=== PATIENT | female | born 1995 | race Caucasian/White ===

== ENCOUNTER 2018-02-22 11:44 | Observation (INO) ==
[2018-02-22] MEDS ORDERED: Naloxone 0.4 MG/ML INJ IVP PRN (13:42)
[2018-02-22] MEDS ORDERED: *HR* Dextrose 50 % in Water (Syg) 50 ML SYRINGE IVP PRN (13:44)
[2018-02-22] MEDS ORDERED: Dextrose Gel 15 GM/37.5 ML TUBE PO PRN ×2 (13:44)
[2018-02-22] MEDS ORDERED: D5% in Water 1,000 ML IVC PRN (13:44)
--- NOTE | 2018-02-22 13:48 | Internal Med History&Physical ---
Date of Encounter: 02/22/18 Time of Encounter: 13:48 Internal Medicine - H&P: HPI Chief complaint: nasue, vomiting and diarrhea Admitted From: Hospital to Hospital Transfer Plans for Post Hospital Care: Home History of present illness: Ms. Posadas is a 22 year old female with DM1 diagnosed at age of 4 presented to [facility] ED with complaint of nausea, vomiting adn diarrhea. her symptoms started at 11 pm on 02/21 with nasue and quickle she developed vomiting. she describes 7 episodes of bile stained, non-bloody vomiting along with 5 episodes of watery non-blood diarrhea and went to [facility] ED for further evaluation as her symptoms did not resolved. she was unable to sleep at night as her symptoms kept her awake. she denies abdominal pain associated with her nausea, vomiting and diarrhea, reports that she is not ( was checked at [facility]). she decided to go to the ED because she has had similar symptoms in the past and had to be admitted to the ICU for DKA. last DKA occurred in April of 2017 where she was intubated for DKA. she has not taken her long acting insulin dosage in the AM. she is feeling much better as she was hydrated at [facility]. she reports that she is hungry and is inquiring about eating. all her symptoms have resolved. has not vomited or had diarrhea since she was evaluated at [facility] earlier on admission morning. she denies fever, chill,s, chest pain, palpitations, LOC, Syncope, PND, ort hopnea, leg swelling, recent Abx use, illicit drug use, jaundice. does report that her daughter is sick with croup but denies other sick contacts. Past Med Surg Social Fam HX - Past Medical History Medical history: diabetes Additional medical history: neuropathy Psychiatric history: no psych history - Past Surgical History Surgical History: other (Tonsillectomy) Additional surgical history: t&a at age 7 - Social History Smoking Status: Former smoker Smokeless Tobacco Status: No Alcohol use: none Drug use: none - Family History Mother Living Status: Still Living Hx Family Cardiac Disorders: Yes Internal Medicine - H&P: Meds Gabapentin [Neurontin] 300 mg PO HS 08/05/17 [History] Insulin Glargine,Hum.rec.anlog [Trevonaglhoward Santacruz U-100] 36 unit SQ BID 02/22/18 [History] Insulin LISPRO [Admelog Solostar] 0 unit SQ ACHS 02/22/18 [History] Allergy/AdvReac Type Severity Reaction Status Date / Time ondansetron Allergy Hives Verified 02/22/18 09:25 [From Zofran (as hydrochloride)] All Systems PM: A 10-system review of systems was performed and is negative for pertinent findings except as documented above in the HPI. - Constitutional Vitals: VSS at bedside - pending nursing staff to document in the chart Exam: General: Patient is alert, oriented, no acute distress, thin Head: atraumatic, normocephalic, Eye: normal appearance, PERRL, no scleral icterus, no conjunctival injection ENT: mucous membranes moist, normal external ear exam Neck: normal inspection, trachea midline, full ROM, no carotid bruits Chest: normal inspection, symmetric chest rise Respiratory: Good respiratory effort. Bilateral breath sounds are clear without wheezing, crackles, or rhonchi. Cardiovascular: Regular rate and rhythm. s1 and s2 No clicks, rubs, gallops, or murmors. Abdomen: Bowel sounds present normoactive x-4 quadrants. Abdomen is soft, non distended. no Epigastric tenderness. No guarding or rebound. No organomegaly noted, musculoskeletal: Spontaneously moving all extremities. no edema, no calf tenderness Skin: warm, dry, intact. Neuro: Alert and oriented x4. Sensation light touch intact. Cranial nerves 2- 12 is intact. Not aphasic, gait is steady, rapid hand movements intact, [id number] intact, Psych: Patient's affect is normal - Assessment and plan (1) Gastroenteritis Current Visit: No Status: Acute Assessment and plan: most likely viral stool studies ordered will follow will hold off of Abx for now as she is afebrile and had no WBC count at [facility] currently hungry and is asking for diet N/V/D has resolved since presentation at [facility] promethazine 12.5 mg Q8H PRN for N/V continue IV hydration - watch for overload if she developes fever, leukocytosis or meets SIRS criteria- consider starting ABx (2) Hyperglycemia due to type 1 diabetes mellitus Current Visit: Yes Status: Acute Assessment and plan: patient had N/v/D did not take her morning long acting or sliding insulin before going to [facility] ED for evaluation was found to have blood glucose of 290, no Anion gap, PH WNL. will continue home dose long acting along with sliding scale strict glucose control currently hungry and requesting diet continue IV hydration A1c in AM (3) Ketosis Current Visit: Yes Status: Acute Assessment and plan: most likely secondary to starvation as her blood glucose was 290 on presentation to [facility] and she reports she has not been able to eat or drink anything since 11 pm at night. continue IV hydration labs from [facility] reviewed PH 7.34 mildly elevated BHB 1.32 (4) DVT prophylaxis Current Visit: Yes Status: Acute Assessment and plan: heparin sc - Time Spent With Patient Total time spent is greater than 50% in coordination of care (as documented) at patient's floor/unit and/or counseling patient:
[2018-02-22] MEDS: 0.9 % Sodium Chloride 1,000 ML IVC SCH (14:44)
[2018-02-22] MEDS: Insulin LISPRO 300 UNITS/3 ML VIAL SQ SCH ×3 (14:45→21:39)
[2018-02-22] MEDS: *HR* Heparin 5,000 UNIT/ML VIAL SQ SCH ×2 (15:28→21:14)
[2018-02-22] MEDS: *HR* Promethazine 25 MG/ML VIAL IVP PRN (17:14)
[2018-02-22 18:35] LABS: Enteropathogenic E.coli(EPEC) DETECTED (Not detect)
[2018-02-22 18:39] LABS: Adenovirus F 40/41 PCR Not detected (Not detect); Astrovirus PCR Not detected (Not detect); C.difficile Toxin A/B by PCR Not detected (Not detect); Campylobacter by PCR Not detected (Not detect); Cryptosporidium by PCR DETECTED (Not detect); Cyclospora cayetanensis PCR Not detected (Not detect); E. coli O157 by PCR Not detected (Not detect); Entamoeba histolytica PCR Not detected (Not detect); Enteroaggregative E.coli(EAEC) Not detected (Not detect); Enterotoxigenic E.coli (ETEC) Not detected (Not detect); Giardia lamblia PCR Not detected (Not detect); Norovirus GI/GII PCR Not detected (Not detect); Plesiomonas shigelloides PCR Not detected (Not detect); Rotavirus A PCR Not detected (Not detect); Salmonella PCR Not detected (Not detect); Sapovirus PCR Not detected (Not detect); Shig/EnteroinvasiveE coli EIEC DETECTED (Not detect); Shigalike tox-prod E coli STEC Not detected (Not detect); Vibrio PCR Not detected (Not detect); Vibrio cholerae PCR Not detected (Not detect); Yersinia enterocolitica PCR Not detected (Not detect)
[2018-02-22 19:11] LABS: Basophils % 0.2 %; Eosinophils % 0.6 %; Hematocrit 39.4 % (35.3-44.9); Hemoglobin 13.2 g/dL (11.5-15.4); Immature Granulocytes % 0.4 % (0-4); Lymphocytes # 0.6 K/mcL (0.6-4.6); Lymphocytes % 12.9 %; Mean Corpuscular HGB Conc 33.5 g/dL (31.6-35.5); Mean Corpuscular Hemoglobin 28.4 pg (28.0-33.3); Mean Corpuscular Volume 84.9 fL (83.0-100.0); Mean Platelet Volume 10.9 fL (9.4-12.4); Monocytes # 0.3 K/mcL (0.0-1.3); Monocytes % 6.3 %; Neutrophils # 3.9 K/mcL (1.6-8.9); Platelet Count 154 K/mcL (140-400); Red Blood Count 4.64 M/mcL (3.82-4.97); Red Cell Distribution Width 12.1 % (11.5-14.5); Segmented Neutrophils % 79.6 %
[2018-02-22] MEDS: cefTRIAXone 2,000 MG in Water for inj. (sterile) 20 ML 20 ML IVP SCH (19:15)
[2018-02-22 19:31] LABS: Alanine Aminotransferase 10 Units/L (7-52); Albumin 3.8 g/dL (3.5-5.7); Albumin/Globulin Ratio 1.5 (1.1-2.2); Alkaline Phosphatase 64 Units/L (34-104); Aspartate Amino Transferase 12 Units/L (13-39); BUN/Creatinine Ratio 27 (6-26); Bilirubin,Total 0.5 mg/dL (0.3-1.0); Blood Urea Nitrogen 12 mg/dL (6-20); Calcium 8.4 mg/dL (8.6-10.3); Carbon Dioxide 18 mEq/L (23-29); Chloride 108 mEq/L (98-107); Globulin 2.5 g/dL (2.4-3.5); Glucose 115 mg/dL (70-105); Osmolality,Calculated 287 (280-300); Potassium 3.3 mEq/L (3.5-5.1); Sodium 138 mEq/L (136-145); Total Protein 6.3 g/dL (6.4-8.9); eGFR For Non-African Americans > 60 (> 60)
[2018-02-22 20:16] LABS: Bilirubin,Urine Negative (Negative); Blood,Urine Negative (Negative); Clarity,Urine Clear (Clear); Color,Urine Yellow (Yellow); Glucose,Urine (UA) 250 mg/dL (Normal); Ketones,Urine >=160 mg/dL (Negative); Leukocyte Esterase,Urine Negative (Negative); Nitrite,Urine Negative (Negative); PH,Urine 5.5 pH Units (5.0-8.0); Protein,Urine 30 mg/dL (Neg-Trace); Specific Gravity,Urine 1.027 (1.010-1.025); Urobilinogen,Urine Normal (Normal)
[2018-02-22 20:18] LABS: Bacteria,Urine Few per hpf (None-Few); Hyaline Casts,Urine None Seen per lpf (None-Few); RBC,Urine 0-3 per hpf (0-3); Squamous Epithelial Cell,Urine Many per lpf (None-Few)
[2018-02-22 20:26] LABS: Amphetamine Screen,Urine Positive ng/mL (Cutoff=1000); Barbiturate Screen,Urine Negative ng/mL (Cutoff=200); Benzodiazepines Screen,Urine Negative ng/mL (Cutoff=200); Cannabinoid Screen,Urine Negative ng/mL (Cutoff = 50); Cocaine Screen,Urine Negative ng/mL (Cutoff= 300); Opiate Screen,Urine Negative ng/mL (Cutoff=300); Phencyclidine Screen,Urine Negative ng/mL (Cutoff=25)
[2018-02-22] MEDS: Insulin DETEMIR 100 UNIT/ML X5UNITS SQ SCH (21:15)
[2018-02-22] MEDS: Gabapentin 300 MG CAPSULE PO SCH (21:15)
[2018-02-23] MEDS: traMADol 50 MG TABLET PO PRN ×2 (00:50→18:20)
[2018-02-23] MEDS: *HR* Promethazine 25 MG/ML VIAL IVP PRN ×3 (00:50→18:08)
[2018-02-23] MEDS: 0.9 % Sodium Chloride 1,000 ML IVC SCH (00:51)
[2018-02-23 04:42] LABS: Basophils % 0.2 %; Eosinophils % 0.6 %; Hemoglobin 12.2 g/dL (11.5-15.4); Immature Granulocytes % 0.4 % (0-4); Mean Corpuscular HGB Conc 33.9 g/dL (31.6-35.5); Mean Corpuscular Hemoglobin 28.8 pg (28.0-33.3); Mean Corpuscular Volume 85.1 fL (83.0-100.0); Mean Platelet Volume 11.4 fL (9.4-12.4); Monocytes # 0.3 K/mcL (0.0-1.3); Monocytes % 6.5 %; Neutrophils # 3.4 K/mcL (1.6-8.9); Platelet Count 153 K/mcL (140-400); Red Blood Count 4.23 M/mcL (3.82-4.97); Red Cell Distribution Width 12.1 % (11.5-14.5); Segmented Neutrophils % 71.3 %
[2018-02-23 04:59] LABS: BUN/Creatinine Ratio 21 (6-26); Blood Urea Nitrogen 8 mg/dL (6-20); Calcium 8.3 mg/dL (8.6-10.3); Carbon Dioxide 17 mEq/L (23-29); Chloride 113 mEq/L (98-107); Cholesterol 117 mg/dL (< 200); Glucose 84 mg/dL (70-105); HDL Cholesterol 29 mg/dL (40-59); LDL Cholesterol,Calculated 73 mg/dL (0-99); Magnesium 1.8 mg/dL (1.6-2.6); Osmolality,Calculated 286 (280-300); Potassium 3.4 mEq/L (3.5-5.1); Sodium 139 mEq/L (136-145); Triglycerides 77 mg/dL (< 150); eGFR For Non-African Americans > 60 (> 60)
[2018-02-23] MEDS: *HR* Heparin 5,000 UNIT/ML VIAL SQ SCH ×3 (05:42→21:36)
[2018-02-23] MEDS: Insulin LISPRO 300 UNITS/3 ML VIAL SQ SCH ×4 (07:36→21:37)
[2018-02-23] MEDS: Insulin DETEMIR 100 UNIT/ML X5UNITS SQ SCH ×2 (09:31→21:37)
[2018-02-23] MEDS ORDERED: 0.9 % Sodium Chloride 1,000 ML IVC SCH (14:00)
--- NOTE | 2018-02-23 16:56 | Internal Med Progress Note ---
Hospitalist Progress Note - Encounter Date of Encounter: 02/23/18 Time of Encounter: 16:53 - Subjective Interval History: Patient was seen and examined earlier this morning she continues to experience diarrhea overnight she had proximal and 5 stools however this morning states she has not had any bowel movement. She is tolerating. At this time no nausea or vomiting - Exam Vitals: Temp Pulse Resp BP Pulse Ox 97.4 F L 81 18 111/71 98 02/23/18 15:51 02/23/18 15:51 02/23/18 15:51 02/23/18 15:51 02/23/18 15:51 Exam: General: Patient is alert, oriented, no acute distress, thin Head: atraumatic, normocephalic, Eye: normal appearance, PERRL, no scleral icterus, no conjunctival injection ENT: mucous membranes moist, normal external ear exam Neck: normal inspection, trachea midline, full ROM, no carotid bruits Chest: normal inspection, symmetric chest rise Respiratory: Good respiratory effort. Bilateral breath sounds are clear without wheezing, crackles, or rhonchi. Cardiovascular: Regular rate and rhythm. s1 and s2 No clicks, rubs, gallops, or murmors. Abdomen: Bowel sounds present normoactive x-4 quadrants. Abdomen is soft, nondistended. no Epigastric tenderness. No guarding or rebound. No organomegaly noted, musculoskeletal: Spontaneously moving all extremities. no edema, no calf tenderness Skin: warm, dry, intact. Neuro: Alert and oriented x4. Sensation light touch intact. Cranial nerves 2- 12 is intact. Not aphasic, gait is steady, rapid hand movements intact, [id number] intact, Psych: Patient's affect is normal - Assessment and Plan (1) Gastroenteritis Current Visit: No Status: Acute Assessment and Plan: most likely viral stool studies ordered will follow will hold off of Abx for now as she is afebrile and had no WBC count at [facility] currently hungry and is asking for diet N/V/D has resolved since presentation at [facility] promethazine 12.5 mg Q8H PRN for N/V continue IV hydration - watch for overload if she developes fever, leukocytosis or meets SIRS criteria- consider starting ABx 02/23 GI panel was positive for Shigella, E coli and Cryptosporodium We will continue with IV Rocephin I did discuss with the patient concerns of HIV exposure-patient states that she had unprotected sex with HIV-positive male approximately one year ago. Patient states she has never been tested for HIV in the past. We will obtain HIV test after patient gives consent We will continue with IV hydration Continue with IV Phenergan for nausea (2) Hyperglycemia due to type 1 diabetes mellitus Current Visit: Yes Status: Acute Assessment and Plan: patient had N/v/D did not take her morning long acting or sliding insulin before going to [facility] ED for evaluation was found to have blood glucose of 290, no Anion gap, PH WNL. will continue home dose long acting along with sliding scale strict glucose control currently hungry and requesting diet continue IV hydration A1c in AM 02/23 Patient has been tolerating oral intake however she did have blood glucose of 80-93 May decrease basal insulin due to unpredictable oral intake Continue to monitor glucose closely Continue with IV hydration We will check A1c (3) Ketosis Current Visit: Yes Status: Acute Assessment and Plan: most likely secondary to starvation as her blood glucose was 290 on presentation to [facility] and she reports she has not been able to eat or drink anything since 11 pm at night. continue IV hydration labs from [facility] reviewed PH 7.34 mildly elevated BHB 1.32 (4) DVT prophylaxis Current Visit: Yes Status: Acute Assessment and Plan: heparin sc - Time Spent with Patient Total time spent is greater than 50% in coordination of care (as documented) at patient's floor/unit and/or counseling patient: Internal Medicine: Result - Labs CBC & Chem 7: 02/23/18 03:42 02/23/18 03:42 Labs: Short CBC 02/22/18 02/23/18 Range/Units 19:01 03:42 WBC 5.0 4.8 (4.3-11.1) K/mcL Hgb 13.2 D 12.2 (11.5-15.4) g/dL Hct 39.4 36.0 (35.3-44.9) % Plt Count 154 153 (140-400) K/mcL Neutrophils # 3.9 3.4 (1.6-8.9) K/mcL BMP 02/22/18 02/23/18 19:01 03:42 Sodium 138 139 Potassium 3.3 L 3.4 L Chloride 108 H 113 H Carbon Dioxide 18 L 17 L BUN 12 8 Creatinine 0.44 L 0.38 L Glucose 115 H 84 Calcium 8.4 L 8.3 L Liver Function 02/22/18 Range/Units 19:01 Total Bilirubin 0.5 (0.3-1.0) mg/dL AST 12 L (13-39) Units/L ALT 10 (7-52) Units/L Alkaline Phosphatase 64 (34-104) Units/L Albumin 3.8 (3.5-5.7) g/dL Urine 02/22/18 Range/Units 20:09 Urine Color Yellow (Yellow) Urine Clarity Clear (Clear) Urine pH 5.5 (5.0-8.0) pH Units Ur Specific [place] 1.027 H (1.010-1.025) Urine Protein 30 H (Neg-Trace) mg/dL Urine Glucose (UA) 250 H (Normal) mg/dL Consult Discharge Plan - Plan Referrals: NONE,PCP [Primary Care Provider] -
[2018-02-23 18:07] LABS: BUN/Creatinine Ratio 11 (6-26); Blood Urea Nitrogen 5 mg/dL (6-20); Calcium 8.4 mg/dL (8.6-10.3); Carbon Dioxide 22 mEq/L (23-29); Chloride 110 mEq/L (98-107); Glucose 82 mg/dL (70-105); Osmolality,Calculated 284 (280-300); Potassium 3.4 mEq/L (3.5-5.1); Sodium 139 mEq/L (136-145); eGFR For Non-African Americans > 60 (> 60)
[2018-02-23] MEDS: cefTRIAXone 2,000 MG in Water for inj. (sterile) 20 ML 20 ML IVP SCH (18:08)
[2018-02-23] MEDS: Gabapentin 300 MG CAPSULE PO SCH (21:36)
[2018-02-23] MEDS: Lactobacillus 1 EACH CAP.SPRINK PO SCH (22:03)
[2018-02-24] MEDS: traMADol 50 MG TABLET PO PRN ×2 (02:22→10:16)
[2018-02-24] MEDS: *HR* Promethazine 25 MG/ML VIAL IVP PRN ×2 (02:22→10:16)
[2018-02-24] MEDS: *HR* Heparin 5,000 UNIT/ML VIAL SQ SCH ×2 (04:52→14:43)
[2018-02-24 05:04] LABS: Basophils % 0.6 %; Eosinophils # 0.2 K/mcL (0.0-0.6); Eosinophils % 5.4 %; Hematocrit 32.5 % (35.3-44.9); Hemoglobin 11.1 g/dL (11.5-15.4); Immature Granulocytes % 0.3 % (0-4); Lymphocytes # 1.4 K/mcL (0.6-4.6); Lymphocytes % 44.1 %; Mean Corpuscular HGB Conc 34.2 g/dL (31.6-35.5); Mean Corpuscular Hemoglobin 28.7 pg (28.0-33.3); Mean Platelet Volume 11.2 fL (9.4-12.4); Monocytes # 0.5 K/mcL (0.0-1.3); Monocytes % 14.4 %; Neutrophils # 1.1 K/mcL (1.6-8.9); Platelet Count 133 K/mcL (140-400); Red Blood Count 3.87 M/mcL (3.82-4.97); Red Cell Distribution Width 12.3 % (11.5-14.5); Segmented Neutrophils % 35.2 %
[2018-02-24 05:24] LABS: BUN/Creatinine Ratio 10 (6-26); Blood Urea Nitrogen 4 mg/dL (6-20); Calcium 8.4 mg/dL (8.6-10.3); Carbon Dioxide 24 mEq/L (23-29); Chloride 111 mEq/L (98-107); Glucose 137 mg/dL (70-105); Osmolality,Calculated 287 (280-300); Potassium 3.9 mEq/L (3.5-5.1); Sodium 139 mEq/L (136-145); eGFR For Non-African Americans > 60 (> 60)
[2018-02-24 07:40] VITALS: BP 100/59
[2018-02-24] MEDS: Insulin LISPRO 300 UNITS/3 ML VIAL SQ SCH ×2 (08:01→12:59)
[2018-02-24] MEDS: Lactobacillus 1 EACH CAP.SPRINK PO SCH (08:38)
[2018-02-24] MEDS: Insulin DETEMIR 100 UNIT/ML X5UNITS SQ SCH (08:39)
[2018-02-24 09:10] LABS: Estimated Average Glucose 217 mg/dl; Hemoglobin A1C 9.2 %
--- NOTE | 2018-02-24 14:59 | Discharge Summary ---
- NOTES TO OUTPATIENT PROVIDER Notes to Outpatient Provider: Follow up with PCP in one week. please quit doing illicit drugs. please do not go to work until diarrhea resolves completely. please follow strict transmission precautions - wash your hands after going to the bathroom or changing diapers. Throw away dirty diapers and animal bowel movements in a closed garbage can away from where you cook and eat Date of Encounter: 02/24/18 Time of Encounter: 14:56 - Discharge Diagnosis (1) Gastroenteritis Priority: Primary Status: Acute (2) Hyperglycemia due to type 1 diabetes mellitus Priority: Secondary Status: Acute (3) Ketosis Priority: Secondary Status: Acute (4) DVT prophylaxis Priority: Secondary Status: Acute (5) Diarrhea due to cryptosporidium Priority: Secondary Status: Acute (6) Shigella dysentery Priority: Secondary Status: Acute Hospital course: Ms. Posadas is a 22 year old female with DM1 diagnosed at age of 4 presented to [facility] ED with complaint of nausea, vomiting adn diarrhea. She denies abdominal pain associated with her nausea, vomiting and diarrhea, reports that she is not ( was checked at [facility]). Patient was admitted in the hospital for intractable nausea vomiting and diarrhea. Her G.I. stool panel came back positive for Cryptosporidium, EPEC and Shigella. Patient was started on empirical antibiotic with cephalosporins. Pt was placed on symptomatic and supportive care. Her diarrhea improved today and tolerating oral intake better today. Her blood sugars also stable with her regular home insulin regimen. Will discharge her home in a stable condition today. Provided all instructions about prevention off the above-mentioned pathogens. All the pathogens are self- limited, may not need much of treatment other then supportive care. However I asked her to take Cipro 500BID x 7 days. - Time Spent with Patient Total time spent providing and/or coordinating discharge services: - Discharge Medications Prescriptions: Promethazine [Phenergan] 12.5 mg PO Q8HR PRN #6 tablet PRN Reason: Nausea Ciprofloxacin HCl [Cipro] 500 mg PO BID #14 tablet Lactobacillus [Culturelle] 2 each PO BID #60 cap.sprink Home Medications: Gabapentin [Neurontin] 300 mg PO HS 08/05/17 [History] Insulin Glargine,Hum.rec.anlog [Basaglar Kwikpen U-100] 36 unit SQ BID 02/22/18 [History] Insulin LISPRO [Admelog Solostar] 0 unit SQ ACHS 02/22/18 [History] Ciprofloxacin HCl [Cipro] 500 mg PO BID #14 tablet 02/24/18 [Rx] Lactobacillus [Culturelle] 2 each PO BID #60 cap.sprink 02/24/18 [Rx] Promethazine [Phenergan] 12.5 mg PO Q8HR PRN #6 tablet 02/24/18 [Rx] Allergies/Adverse Reactions: Allergy/AdvReac Type Severity Reaction Status Date / Time ondansetron Allergy Hives Verified 02/22/18 09:25 [From Zofran (as hydrochloride)] red dye Allergy See Verified 02/22/18 23:24 Comments Date of admission: 02/22/18 13:11 Primary care physician: PCP NONE Consults: 02/23/18 16:36 Consult to Invasive Line Access Team [CONS] Routine Reason for Consult: limited access, IV ATB. Line Type: EPIV PICC line indications: Limited vascular access - Constitutional Vitals: Temp Pulse Resp BP Pulse Ox 98.2 F 68 18 100/59 98 02/24/18 07:38 02/24/18 07:38 02/24/18 07:38 02/24/18 07:38 02/24/18 07:38 Exam: Gen: Alert, awake, Oriented to time,place and person Chest: Diminished breath sounds B/L, No wheezing, No crackles, No rales Heart: S1S2+ RRR No murmurs Abd: Soft, NT, BS +, No organomegaly Ext: No edema, pulses are palpable, No calf tenderness Neuro : Benign findings Skin: No rash. - Patient Status Disposition: Home, Self-Care Condition: Good Overall status at discharge: patient is back to baseline - Discharge Instructions Follow Up With: NONE,PCP [Primary Care Provider] - - Diet and Activity Activity: increase activity as tolerated Diet: low salt diet
== END 2018-02-24 15:49 | disposition home or self-care (01) ==
LOC: 3BNU
PROVIDERS: ADMIT Internal Medicine; ATTEND Internal Medicine

== ENCOUNTER 2018-09-15 18:59 | Inpatient (IN) ==
[2018-09-15 19:47] LABS: Bilirubin,Urine Negative (Negative); Blood,Urine Negative (Negative); Clarity,Urine Clear (Clear); Color,Urine Yellow (Yellow); Glucose,Urine (UA) >=1000 mg/dL (Normal); Ketones,Urine >=160 mg/dL (Negative); Leukocyte Esterase,Urine Negative (Negative); Nitrite,Urine Negative (Negative); Protein,Urine Trace mg/dL (Neg-Trace); Specific Gravity,Urine 1.026 (1.010-1.025); Urobilinogen,Urine Normal (Normal)
[2018-09-15 20:16] LABS: Basophils % 0.1 %; Hematocrit 32.8 % (35.3-44.9); Immature Granulocytes % 0.5 % (0-4); Lymphocytes # 1.3 K/mcL (0.6-4.6); Lymphocytes % 11.8 %; Mean Corpuscular HGB Conc 33.5 g/dL (31.6-35.5); Mean Corpuscular Hemoglobin 29.4 pg (28.0-33.3); Mean Corpuscular Volume 87.7 fL (83.0-100.0); Monocytes # 1.2 K/mcL (0.0-1.3); Monocytes % 11.2 %; Neutrophils # 8.4 K/mcL (1.6-8.9); Platelet Count 223 K/mcL (140-400); Red Blood Count 3.74 M/mcL (3.82-4.97); Red Cell Distribution Width 11.2 % (11.5-14.5); Segmented Neutrophils % 76.4 %
[2018-09-15 20:34] LABS: BUN/Creatinine Ratio 20 (6-26); Blood Urea Nitrogen 10 mg/dL (6-20); Calcium 8.9 mg/dL (8.6-10.3); Carbon Dioxide 19 mEq/L (23-29); Chloride 97 mEq/L (98-107); Glucose 294 mg/dL (70-105); Osmolality,Calculated 282 (280-300); Potassium 3.8 mEq/L (3.5-5.1); Sodium 131 mEq/L (136-145); eGFR For African Americans > 60 (> 60); eGFR For Non-African Americans > 60 (> 60)
[2018-09-15] MEDS ORDERED: 0.9 % Sodium Chloride 1,000 ML IVC ONE ×2 (20:59→22:06)
[2018-09-15] MEDS ORDERED: Levofloxacin 750 MG/150 ML 750 MG/150 ML BAG IVPB ONE (21:15)
[2018-09-15] MEDS ORDERED: Promethazine 12.5 MG in 0.9 % Sodium Chloride 50 ML IVPB ONE (21:16)
[2018-09-15 22:19] LABS: VBG HCO3 20 mEq/L (21-27); VBG PCO2 33 mmHg (41-51); VBG PH 7.39 pH Units (7.32-7.42); VBG PO2 114 mmHg (25-50)
--- NOTE | 2018-09-15 22:28 | Emergency Department Note ---
Disposition Clinical Impression: Right flank pain, Hyperglycemia, Ketonemia Nausea and vomiting Qualifiers: Vomiting type: unspecified Vomiting Intractability: unspecified Qualified Code(s): R11.2 - Nausea with vomiting, unspecified Fever Qualifiers: Fever type: unspecified Qualified Code(s): R50.9 - Fever, unspecified Disposition: Admitted As Inpatient Condition: Good Time of Disposition: 22:58 Nausea/Vomiting/Diarrhea HPI - General Chief complaint: ED Nausea/Vomiting/Diarrhea Stated complaint: NV, R Flank Pain Time Seen by Provider: 09/15/18 20:47 Source: patient, family (Fianc) Mode of arrival: ambulatory Limitations: no limitations Nursing Notes Reviewed: Yes Vital Signs Reviewed: Yes - History of Present Illness HPI Narrative: 23-year-old female history of type I diabetes presents an emergency department with nausea vomiting and kidney infection. For the past week or so she has been experiencing right flank pain with associated nausea vomiting that has worsened. She was evaluated at outside facility a diagnosed with pyelonephritis. She was prescribed a antibiotic and up until today she was unable to keep anything down including the medication. She has vomited up to 9 times nonbloody today in approximately 3 to 5 times yesterday. She reports some right upper quadrant in right flank pain without radiation. Denies any urinary symptoms. Denies chest pain or shortness of breath. No history of abdominal surgeries. Denies any vaginal bleeding or discharge. She has IUD in place and is not believed to be . Her fianc is in the room and present at this time. She was found to be febrile children emergency department but denies fevers at home. Pt Subjective Complaint: nausea, vomiting - Related Data Home Medications Medication Instructions Recorded Confirmed Insulin LISPRO [Admelog Solostar] 0 unit SQ ACHS 02/22/18 09/15/18 Gabapentin [Neurontin] 900 mg PO HS 05/16/18 09/15/18 Insulin Glargine,Hum.rec.anlog 36 unit SQ HS 09/15/18 09/15/18 [Basaglar Kwikpen U-100] Trazodone HCl 100 mg PO HS 09/15/18 09/15/18 Allergies Allergy/AdvReac Type Severity Reaction Status Date / Time ondansetron Allergy Hives Verified 09/15/18 19:31 [From Zofran (as hydrochloride)] red dye Allergy See Verified 09/15/18 19:31 Comments All systems ED: reviewed and negative except as stated. Review of Systems: As Per HPI Constitutional: Reports: fever. Denies: chills, weakness Cardiovascular: Denies: chest pain Respiratory: Denies: cough, dyspnea Gastrointestinal: Reports: abdominal pain, nausea, vomiting. Denies: diarrhea Genitourinary: Denies: urgency, dysuria, hematuria, discharge Musculoskeletal: Reports: back pain (right flank) Integumentary: Denies: rash, abrasion Past Medical History - Past Medical History Attestation: Yes The following information was validated with the patient. 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 - Social History Smoking Status: Former smoker Smokeless Tobacco Status: No Alcohol use: Reports: none Drug use: Reports: none Physical Exam - General Limitations: no limitations General appearance: alert, in no apparent distress - Head Head exam: atraumatic, normocephalic, normal inspection - Eye Eye exam: Present: normal appearance, PERRL, EOMI - ENT ENT exam: normal exam, normal oropharynx, mucous membranes dry - Neck Neck exam: Present: normal inspection, full ROM, trachea midline - Chest Chest inspection: Present: normal inspection, symmetric chest wall rise - Respiratory Respiratory exam: Present: normal lung sounds bilaterally. Absent: respiratory distress, wheezes - Cardiovascular Cardiovascular exam: Present: normal rhythm, tachycardia, normal heart sounds - Expanded Cardiovascular Exam Peripheral pulses: 2+: radial (R), radial (L) - Abdominal Exam Abdominal exam: Present: soft, tenderness, normal bowel sounds. Absent: Non- Tender, distention, guarding, rebound, rigidity, More's sign, tenderness at McBurney's Point Abdominal tenderness: Present: RUQ - Extremities Exam Extremities exam: Present: normal inspection, full ROM. Absent: tenderness, pedal edema - Back Exam Back exam: Present: normal inspection, full ROM, CVA tenderness (R). Absent: tenderness, CVA tenderness (L) - Neurological Exam Neurological exam: Present: alert, oriented X3 - Psychiatric Psychiatric exam: Present: normal affect, normal mood - Skin Skin exam: Present: warm, dry, intact, normal color. Absent: rash, cyanosis, diaphoresis Course Course Narrative: Patient presents with reports of pyelonephritis in right flank pain with worsen ing nausea vomiting. Ongoing for the past week. She is tachycardic and has been unable to keep anything by oral. She was febrile 101.9. Tylenol was given. Concern for failed outpatient pyelonephritis and developing dehydration . Patient will receive IV fluids Levaquin and additional lab work. Some lab values were performed prior to my evaluation which showed ketones in the urine as well as hyperglycemia. She has been unable to control her sugars over the past several days due to the nausea vomiting. Further evaluation for possible diabetic ketoacidosis. - Reevaluation(s) Reevaluation #1: Anion gap of 15. She has ketones in the serum. No acidosis. Findings consistent with diabetic ketoacidosis at this time Her urinalysis is not consistent with infection however on prior CT imaging on September 07 there was radiologic evidence of pyelonephritis. At this time given her intractable nausea vomiting and right flank pain with fever with concern for sepsis secondary to possible pyelonephritis which could throw her in diabetic ketoacidosis. Therefore the patient will benefit admission for further treatment and reevaluation. She is agreeable to this plan. Levaquin given. Time: 22:28 - Consultations Consultation #1: Spoke with on-call hospitalist azar Rodriguez to admit for right flank pain, nausea vomiting, fever, hyperglycemia and ketonemia. No further orders at this time Vital Signs Temperature 101.9 F H 09/15/18 19:15 Pulse Rate 105 09/15/18 19:15 Respiratory Rate 18 09/15/18 19:15 Blood Pressure 118/68 09/15/18 19:15 O2 Sat by Pulse Oximetry 97 09/15/18 19:15 Temperature 101.9 F H 09/15/18 19:15 Pulse Rate 91 09/15/18 20:26 Respiratory Rate 16 09/15/18 20:26 Blood Pressure 116/64 09/15/18 20:26 O2 Sat by Pulse Oximetry 95 09/15/18 20:26 Oxygen Delivery Oxygen Delivery Room Air Nausea/Vomiting/Diarrhea - MDM Narrative Medical decision making narrative: Patient was discussed with my attending physician who agrees with ED management and final disposition. They independently evaluated the patient. Please refer to their attestation to this encounter for additional information. This note was generated by [email or web address] voice recognition software and as a result grammatical or spelling errors may occur using this program. - Medical Records Medical records reviewed: Yes I reviewed the patient's medical records. - Lab Data Lab results reviewed: Yes I reviewed the patient's lab results. Result diagrams: 09/16/18 04:57 09/16/18 04:57 Lab Results 09/15/18 09/15/18 09/15/18 Range/Units 19:15 19:15 19:37 WBC 11.0 (4.3-11.1) K/mcL RBC 3.74 L (3.82-4.97) M/mcL Hgb 11.0 L (11.5-15.4) g/dL Hct 32.8 L (35.3-44.9) % MCV 87.7 (83.0-100.0) fL MCH 29.4 (28.0-33.3) pg MCHC 33.5 (31.6-35.5) g/dL RDW 11.2 L (11.5-14.5) % Plt Count 223 (140-400) K/mcL MPV 11.0 (9.4-12.4) fL Immature Gran % 0.5 (0-4) % Seg Neutrophils % 76.4 % Lymphocytes % 11.8 % Monocytes % 11.2 % Eosinophils % 0.0 % Basophils % 0.1 % Neutrophils # 8.4 (1.6-8.9) K/mcL Lymphocytes # 1.3 (0.6-4.6) K/mcL Monocytes # 1.2 (0.0-1.3) K/mcL Eosinophils # 0.0 (0.0-0.6) K/mcL Basophils # 0.0 (0.0-0.2) K/mcL VBG pH (7.32-7.42) pH Units VBG pCO2 (41-51) mmHg VBG pO2 (25-50) mmHg VBG HCO3 (21-27) mEq/L Sodium (136-145) mEq/L Potassium (3.5-5.1) mEq/L Chloride (98-107) mEq/L Carbon Dioxide (23-29) mEq/L BUN (6-20) mg/dL Creatinine (0.60-1.20) mg/dL Est GFR ( Amer) (> 60) Est GFR (Non-Af Amer) (> 60) BUN/Creatinine Ratio (6-26) Glucose (70-105) mg/dL Calculated Osmolality (280-300) Lactic Acid (0.5-2.2) mmol/L Calcium (8.6-10.3) mg/dL Lipase (11-82) Units/L Beta-Hydroxybutyric Acd (0.02-0.27) mmol/L Urine Color Yellow (Yellow) Urine Clarity Clear (Clear) Urine pH 6.0 (5.0-8.0) pH Units Ur Specific [place] 1.026 H (1.010-1.025) Urine Protein Trace (Neg-Trace) mg/dL Urine Glucose (UA) >=1000 H (Normal) mg/dL Urine Ketones >=160 H (Negative) mg/dL Urine Blood Negative (Negative) Urine Nitrite Negative (Negative) Urine Bilirubin Negative (Negative) Urine Urobilinogen Normal (Normal) mg/dL Ur Leukocyte Esterase Negative (Negative) Ur Culture Indicated? NO (NO) Urine Test Negative (Negative) 09/15/18 09/15/18 09/15/18 Range/Units 19:37 21:40 21:40 WBC (4.3-11.1) K/mcL RBC (3.82-4.97) M/mcL Hgb (11.5-15.4) g/dL Hct (35.3-44.9) % MCV (83.0-100.0) fL MCH (28.0-33.3) pg MCHC (31.6-35.5) g/dL RDW (11.5-14.5) % Plt Count (140-400) K/mcL MPV (9.4-12.4) fL Immature Gran % (0-4) % Seg Neutrophils % % Lymphocytes % % Monocytes % % Eosinophils % % Basophils % % Neutrophils # (1.6-8.9) K/mcL Lymphocytes # (0.6-4.6) K/mcL Monocytes # (0.0-1.3) K/mcL Eosinophils # (0.0-0.6) K/mcL Basophils # (0.0-0.2) K/mcL VBG pH (7.32-7.42) pH Units VBG pCO2 (41-51) mmHg VBG pO2 (25-50) mmHg VBG HCO3 (21-27) mEq/L Sodium 131 L (136-145) mEq/L Potassium 3.8 (3.5-5.1) mEq/L Chloride 97 L (98-107) mEq/L Carbon Dioxide 19 L (23-29) mEq/L BUN 10 (6-20) mg/dL Creatinine 0.50 L (0.60-1.20) mg/dL Est GFR ( Amer) > 60 (> 60) Est GFR (Non-Af Amer) > 60 (> 60) BUN/Creatinine Ratio 20 (6-26) Glucose 294 H (70-105) mg/dL Calculated Osmolality 282 (280-300) Lactic Acid (0.5-2.2) mmol/L Calcium 8.9 (8.6-10.3) mg/dL Lipase 4 L (11-82) Units/L Beta-Hydroxybutyric Acd > 2.00 H (0.02-0.27) mmol/L Urine Color (Yellow) Urine Clarity (Clear) Urine pH (5.0-8.0) pH Units Ur Specific [place] (1.010-1.025) Urine Protein (Neg-Trace) mg/dL Urine Glucose (UA) (Normal) mg/dL Urine Ketones (Negative) mg/dL Urine Blood (Negative) Urine Nitrite (Negative) Urine Bilirubin (Negative) Urine Urobilinogen (Normal) mg/dL Ur Leukocyte Esterase (Negative) Ur Culture Indicated? (NO) Urine Test (Negative) 09/15/18 09/15/18 Range/Units 21:40 22:16 WBC (4.3-11.1) K/mcL RBC (3.82-4.97) M/mcL Hgb (11.5-15.4) g/dL Hct (35.3-44.9) % MCV (83.0-100.0) fL MCH (28.0-33.3) pg MCHC (31.6-35.5) g/dL RDW (11.5-14.5) % Plt Count (140-400) K/mcL MPV (9.4-12.4) fL Immature Gran % (0-4) % Seg Neutrophils % % Lymphocytes % % Monocytes % % Eosinophils % % Basophils % % Neutrophils # (1.6-8.9) K/mcL Lymphocytes # (0.6-4.6) K/mcL Monocytes # (0.0-1.3) K/mcL Eosinophils # (0.0-0.6) K/mcL Basophils # (0.0-0.2) K/mcL VBG pH 7.39 (7.32-7.42) pH Units VBG pCO2 33 L (41-51) mmHg VBG pO2 114 H (25-50) mmHg VBG HCO3 20 L (21-27) mEq/L Sodium (136-145) mEq/L Potassium (3.5-5.1) mEq/L Chloride (98-107) mEq/L Carbon Dioxide (23-29) mEq/L BUN (6-20) mg/dL Creatinine (0.60-1.20) mg/dL Est GFR ( Amer) (> 60) Est GFR (Non-Af Amer) (> 60) BUN/Creatinine Ratio (6-26) Glucose (70-105) mg/dL Calculated Osmolality (280-300) Lactic Acid 0.8 (0.5-2.2) mmol/L Calcium (8.6-10.3) mg/dL Lipase (11-82) Units/L Beta-Hydroxybutyric Acd (0.02-0.27) mmol/L Urine Color (Yellow) Urine Clarity (Clear) Urine pH (5.0-8.0) pH Units Ur Specific [place] (1.010-1.025) Urine Protein (Neg-Trace) mg/dL Urine Glucose (UA) (Normal) mg/dL Urine Ketones (Negative) mg/dL Urine Blood (Negative) Urine Nitrite (Negative) Urine Bilirubin (Negative) Urine Urobilinogen (Normal) mg/dL Ur Leukocyte Esterase (Negative) Ur Culture Indicated? (NO) Urine Test (Negative) Attestation Statement - Attestation Attestation: I have seen this patient with the resident physician, I have personally evaluated this patient. I had reviewed the chart and document dictation by the resident physician and aM in agreement with the information documented by the resident physician. Please see documentation by the resident physician for complete chart including past medical history, family medical history, review of systems, current history and physical and laboratory and imaging studies. I was present for all procedures, provided direct supervision for all procedures, was present for the entirety of all procedures and provided direct guidance during the procedures. Please see documentation by the resident physician for any procedures performed. I have reviewed all interpretations of EKGs, and reviewed all EKGs performed on patient's as well. I have also reviewed reports of imaging as provided by radiology.
--- NOTE | 2018-09-15 23:25 | Emergency Department Note ---
Disposition Clinical Impression: Right flank pain, Hyperglycemia, Ketonemia Nausea and vomiting Qualifiers: Vomiting type: unspecified Vomiting Intractability: unspecified Qualified Code(s): R11.2 - Nausea with vomiting, unspecified Fever Qualifiers: Fever type: unspecified Qualified Code(s): R50.9 - Fever, unspecified Disposition: Admitted As Inpatient Condition: Good Referrals: Emmanuelle Lopez, HUNTING GUIDE [Primary Care Provider] - Forms: ED Satisfaction Letter Time of Disposition: 23:25 General Adult HPI - General Chief complaint: ED Nausea/Vomiting/Diarrhea Stated complaint: NV, R Flank Pain Time Seen by Provider: 09/15/18 20:47 Source: patient, family ([facility]) Mode of arrival: ambulatory Limitations: no limitations Nursing Notes Reviewed: Yes Vital Signs Reviewed: Yes - History of Present Illness Pain Scale: 8 - Related Data Home Medications Medication Instructions Recorded Confirmed Insulin LISPRO [Admelog Solostar] 0 unit SQ ACHS 02/22/18 09/15/18 Gabapentin [Neurontin] 900 mg PO HS 05/16/18 09/15/18 Insulin Glargine,Hum.rec.anlog 36 unit SQ HS 09/15/18 09/15/18 [Basaglar Kwikpen U-100] Trazodone HCl 100 mg PO HS 09/15/18 09/15/18 Allergies Allergy/AdvReac Type Severity Reaction Status Date / Time ondansetron Allergy Hives Verified 09/15/18 19:31 [From Zofran (as hydrochloride)] red dye Allergy See Verified 09/15/18 19:31 Comments Past Medical History - Past Medical History Medical history: Reports: diabetes Surgical history: Reports: other Psychiatric history: Reports: anxiety, depression 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 - Social History Smoking Status: Former smoker Smokeless Tobacco Status: No Alcohol use: Reports: none Drug use: Reports: none Physical Exam - General Limitations: no limitations General appearance: alert Course Vital Signs Temperature 101.9 F H 09/15/18 19:15 Pulse Rate 105 09/15/18 19:15 Respiratory Rate 18 09/15/18 19:15 Blood Pressure 118/68 09/15/18 19:15 O2 Sat by Pulse Oximetry 97 09/15/18 19:15 Temperature 101.9 F H 09/15/18 19:15 Pulse Rate 91 09/15/18 20:26 Respiratory Rate 16 09/15/18 20:26 Blood Pressure 116/64 09/15/18 20:26 O2 Sat by Pulse Oximetry 95 09/15/18 20:26 Oxygen Delivery Oxygen Delivery Room Air Medical Decision Making - Lab Data Result diagrams: 09/15/18 19:37 09/15/18 19:37 Lab Results 09/15/18 09/15/18 09/15/18 Range/Units 19:15 19:15 19:37 WBC 11.0 (4.3-11.1) K/mcL RBC 3.74 L (3.82-4.97) M/mcL Hgb 11.0 L (11.5-15.4) g/dL Hct 32.8 L (35.3-44.9) % MCV 87.7 (83.0-100.0) fL MCH 29.4 (28.0-33.3) pg MCHC 33.5 (31.6-35.5) g/dL RDW 11.2 L (11.5-14.5) % Plt Count 223 (140-400) K/mcL MPV 11.0 (9.4-12.4) fL Immature Gran % 0.5 (0-4) % Seg Neutrophils % 76.4 % Lymphocytes % 11.8 % Monocytes % 11.2 % Eosinophils % 0.0 % Basophils % 0.1 % Neutrophils # 8.4 (1.6-8.9) K/mcL Lymphocytes # 1.3 (0.6-4.6) K/mcL Monocytes # 1.2 (0.0-1.3) K/mcL Eosinophils # 0.0 (0.0-0.6) K/mcL Basophils # 0.0 (0.0-0.2) K/mcL VBG pH (7.32-7.42) pH Units VBG pCO2 (41-51) mmHg VBG pO2 (25-50) mmHg VBG HCO3 (21-27) mEq/L Sodium (136-145) mEq/L Potassium (3.5-5.1) mEq/L Chloride (98-107) mEq/L Carbon Dioxide (23-29) mEq/L BUN (6-20) mg/dL Creatinine (0.60-1.20) mg/dL Est GFR ( Amer) (> 60) Est GFR (Non-Af Amer) (> 60) BUN/Creatinine Ratio (6-26) Glucose (70-105) mg/dL Calculated Osmolality (280-300) Lactic Acid (0.5-2.2) mmol/L Calcium (8.6-10.3) mg/dL Lipase (11-82) Units/L Beta-Hydroxybutyric Acd (0.02-0.27) mmol/L Urine Color Yellow (Yellow) Urine Clarity Clear (Clear) Urine pH 6.0 (5.0-8.0) pH Units Ur Specific [place] 1.026 H (1.010-1.025) Urine Protein Trace (Neg-Trace) mg/dL Urine Glucose (UA) >=1000 H (Normal) mg/dL Urine Ketones >=160 H (Negative) mg/dL Urine Blood Negative (Negative) Urine Nitrite Negative (Negative) Urine Bilirubin Negative (Negative) Urine Urobilinogen Normal (Normal) mg/dL Ur Leukocyte Esterase Negative (Negative) Ur Culture Indicated? NO (NO) Urine Test Negative (Negative) 09/15/18 09/15/18 09/15/18 Range/Units 19:37 21:40 21:40 WBC (4.3-11.1) K/mcL RBC (3.82-4.97) M/mcL Hgb (11.5-15.4) g/dL Hct (35.3-44.9) % MCV (83.0-100.0) fL MCH (28.0-33.3) pg MCHC (31.6-35.5) g/dL RDW (11.5-14.5) % Plt Count (140-400) K/mcL MPV (9.4-12.4) fL Immature Gran % (0-4) % Seg Neutrophils % % Lymphocytes % % Monocytes % % Eosinophils % % Basophils % % Neutrophils # (1.6-8.9) K/mcL Lymphocytes # (0.6-4.6) K/mcL Monocytes # (0.0-1.3) K/mcL Eosinophils # (0.0-0.6) K/mcL Basophils # (0.0-0.2) K/mcL VBG pH (7.32-7.42) pH Units VBG pCO2 (41-51) mmHg VBG pO2 (25-50) mmHg VBG HCO3 (21-27) mEq/L Sodium 131 L (136-145) mEq/L Potassium 3.8 (3.5-5.1) mEq/L Chloride 97 L (98-107) mEq/L Carbon Dioxide 19 L (23-29) mEq/L BUN 10 (6-20) mg/dL Creatinine 0.50 L (0.60-1.20) mg/dL Est GFR ( Amer) > 60 (> 60) Est GFR (Non-Af Amer) > 60 (> 60) BUN/Creatinine Ratio 20 (6-26) Glucose 294 H (70-105) mg/dL Calculated Osmolality 282 (280-300) Lactic Acid (0.5-2.2) mmol/L Calcium 8.9 (8.6-10.3) mg/dL Lipase 4 L (11-82) Units/L Beta-Hydroxybutyric Acd > 2.00 H (0.02-0.27) mmol/L Urine Color (Yellow) Urine Clarity (Clear) Urine pH (5.0-8.0) pH Units Ur Specific [place] (1.010-1.025) Urine Protein (Neg-Trace) mg/dL Urine Glucose (UA) (Normal) mg/dL Urine Ketones (Negative) mg/dL Urine Blood (Negative) Urine Nitrite (Negative) Urine Bilirubin (Negative) Urine Urobilinogen (Normal) mg/dL Ur Leukocyte Esterase (Negative) Ur Culture Indicated? (NO) Urine Test (Negative) 09/15/18 09/15/18 Range/Units 21:40 22:16 WBC (4.3-11.1) K/mcL RBC (3.82-4.97) M/mcL Hgb (11.5-15.4) g/dL Hct (35.3-44.9) % MCV (83.0-100.0) fL MCH (28.0-33.3) pg MCHC (31.6-35.5) g/dL RDW (11.5-14.5) % Plt Count (140-400) K/mcL MPV (9.4-12.4) fL Immature Gran % (0-4) % Seg Neutrophils % % Lymphocytes % % Monocytes % % Eosinophils % % Basophils % % Neutrophils # (1.6-8.9) K/mcL Lymphocytes # (0.6-4.6) K/mcL Monocytes # (0.0-1.3) K/mcL Eosinophils # (0.0-0.6) K/mcL Basophils # (0.0-0.2) K/mcL VBG pH 7.39 (7.32-7.42) pH Units VBG pCO2 33 L (41-51) mmHg VBG pO2 114 H (25-50) mmHg VBG HCO3 20 L (21-27) mEq/L Sodium (136-145) mEq/L Potassium (3.5-5.1) mEq/L Chloride (98-107) mEq/L Carbon Dioxide (23-29) mEq/L BUN (6-20) mg/dL Creatinine (0.60-1.20) mg/dL Est GFR ( Amer) (> 60) Est GFR (Non-Af Amer) (> 60) BUN/Creatinine Ratio (6-26) Glucose (70-105) mg/dL Calculated Osmolality (280-300) Lactic Acid 0.8 (0.5-2.2) mmol/L Calcium (8.6-10.3) mg/dL Lipase (11-82) Units/L Beta-Hydroxybutyric Acd (0.02-0.27) mmol/L Urine Color (Yellow) Urine Clarity (Clear) Urine pH (5.0-8.0) pH Units Ur Specific [place] (1.010-1.025) Urine Protein (Neg-Trace) mg/dL Urine Glucose (UA) (Normal) mg/dL Urine Ketones (Negative) mg/dL Urine Blood (Negative) Urine Nitrite (Negative) Urine Bilirubin (Negative) Urine Urobilinogen (Normal) mg/dL Ur Leukocyte Esterase (Negative) Ur Culture Indicated? (NO) Urine Test (Negative) Attestation Statement - Attestation Attestation: I have seen this patient with the resident physician, I have personally evaluated this patient. I had reviewed the chart and document dictation by the resident physician and aM in agreement with the information documented by the resident physician. Please see documentation by the resident physician for complete chart including past medical history, family medical history, review of systems, current history and physical and laboratory and imaging studies. I was present for all procedures, provided direct supervision for all procedures, was present for the entirety of all procedures and provided direct guidance during the procedures. Please see documentation by the resident physician for any procedures performed. I have reviewed all interpretations of EKGs, and reviewed all EKGs performed on patient's as well. I have also reviewed reports of imaging as provided by radiology. Patient presented emergency department with chief complaint of right flank pain. Patient was seen here a few days ago diagnosed with pyelonephritis, she has a history of diabetes, states that since discharge she has really been ill to take the antibiotics has had progressive worsening symptoms of some right flank pain nausea and vomiting with elevated blood sugars. On exam patient has positive CVA tenderness some very mild right-sided tenderness of her abdomen, no tenderness over McBurney's point. Lungs are clear heart is regular. Reviewing her chart she did have a CT scan of the abdomen pelvis with IV contrast 4 days ago that showed pyelonephritis she had a urinalysis at that time that was negative for any infectious process. Repeat urinalysis again shows no evidence of infection but shows ketones and glucose. Laboratory studies show evidence for dehydration, but without evidence to suggest DKA. She was given IV fluids. She was given IV symptomatically management. She was noted to have a fever of 101.9 here. Secondary to flank pain fever ct pyelonephritis from a few days ago she was given IV antibiotics, she was admitted to the hospital for further evaluation and management do not suspect appendicitis at this time abdomen really is not tender and all of her tenderness is in the flank where she did have a CT scan that showed pyelonephritis. She will be admitted to the hospital for further management of dehydration and hyperglycemia pyelonephritis, for management thereof as well as intractable nausea vomiting with observation and serial abdominal examinations should she develop progressive abdominal pain consideration of repeat CT scan and surgical consult at that time.
[2018-09-15] MEDS ORDERED: 0.9 % Sodium Chloride 1,000 ML IVC SCH (23:30)
[2018-09-15] MEDS ORDERED: 0.9 % Sodium Chloride w KCl 40 MEQ/1,000 ML MLS IVC SCH (23:45)
[2018-09-15] MEDS ORDERED: Dextrose Gel 15 GM/37.5 ML TUBE PO PRN ×2 (23:48)
[2018-09-15] MEDS ORDERED: *HR* Dextrose 50 % in Water (Syg) 50 ML SYRINGE IVP PRN (23:48)
[2018-09-15] MEDS ORDERED: *HR* Promethazine 25 MG/ML VIAL IVP PRN (23:49)
[2018-09-15] MEDS ORDERED: Ketorolac 30 MG/ML VIAL IVP PRN (23:50)
[2018-09-15] MEDS ORDERED: Naloxone 0.4 MG/ML INJ IVP PRN (23:50)
[2018-09-15] MEDS ORDERED: Insulin DETEMIR 100 UNIT/ML X5UNITS SQ ONE (23:52)
[2018-09-15] MEDS ORDERED: Isovue-370 500 ML BOTTLE IVP ONE (23:54)
--- NOTE | 2018-09-16 00:05 | Internal Med History&Physical ---
Date of Encounter: 09/15/18 Time of Encounter: 23:59 Internal Medicine - H&P: HPI Chief complaint: abdominal pain Admitted From: Home Plans for Post Hospital Care: Home History of present illness: Palmira Posadas is a 23 year old lady with poorly controlled type 1 diabetes who has been admitted for DKA in the past and was recently seen at [place] emergency room with complaints of abdominal pain, nausea and vomiting were CT scan done showed right perinephric stranding concerning for pyelonephritis so she was started on antibiotic therapy although her urinalysis was clear. She has been taking the unspecified antibiotic up until yesterday but says that her pain is progressing and she continues to feel nauseated and vomits up to 10 times a day. She has been unable to keep anything down and now feels weak and lethargic. She admits to nonadherence to her insulin therapy. On arrival here she was febrile and tachycardic. UA was repeated and is also without nitrites, leukocyte esterase or white blood cells. She is seen to have ketonemia with mild hyperglycemia notable evidence of dehydration. She was started on fluids and given an empiric dose of levofloxacin for suspected failure of outpatient t herapy to UTI and now admitted for further care. She denies dysuria, vaginal discharge, cough, shortness of breath, diarrhea, headache. Her only complaint remains nausea, vomiting and abdominal pain. Patient denies family history of diabetes. Vitals: Reviewed General: Well-developed white lady lying in bed in notable discomfort and malaise. Skin: Warm, pale, dry. HEENT: Dry mucous membranes. No conjunctivae pallor. No meningisumus. Neck: No lymphadenopathy. No JVD. No carotid bruits. No palpable thyroid. Chest: Normal thoracic expansion. Normal breath sounds. Clear to auscultation. Heart: Normal S1 & S2; rhythmic. No rubs or murmurs. Abdomen: Non-distended, soft and tender to palpation in the right flank. (+) R CVA tenderness. Extremities: No clubbing, cyanosis or edema. No calf tenderness. Normal distal pulses. Neurological: Awake, alert and oriented to person, place and time. No focal deficits. Psych: Affect appropriate. Assessment/Plan 1. SIRS: As evidenced by tachycardia and fever. Concern for an infectious source is present however her urinalysis is not indicative of an infection. I assessed the CT scan she had done dated 09/07/18 and I observed a hypodensity in the right kidney lateral aspect. I will order a repeat contrast enhanced study to ensure she does not have an abscess formation or infected cyst which at times can course with similar symptoms. Will also get a PA/lat chest x-ray as part of further work up. Blood and urine cultures will be sent. Lactate is normal which is reassuring. She has received 1 dose of levofloxacin 750mg which is sufficient for the next 24hrs pending results from the CT scan. Will continue fluid resuscitation in the interim. 2. Intractable nausea/vomiting/abdominal pain: Suspected secondary to pyelonephritis based on CT scan however she denies dysuria and her urine studies do not correlate. Will maintain empiric treatment for this while ruling out other pathologies. test negative. 3. DKA: The patient has a mild elevation in anion gap (15) associated with ketones but no acidemia. She should improve with fluid resuscitation alone and will start her on insulin sliding scale. It is also posisble that her poor gly cemic control contributes to or worsens her symptoms. 4. Dehydration: As evidenced on clinical exam and elevated urine specific gravity. Likely due to intractable vomiting and DKA state. Fluid resuscitation in place. Past Med Surg Social Fam HX - Past Medical History Medical history: diabetes Additional medical history: neuropathy Psychiatric history: anxiety, depression - Past Surgical History Surgical History: other Additional surgical history: age 7 - Social History Smoking Status: Former smoker Smokeless Tobacco Status: No Alcohol use: none Drug use: none - Family History Mother Living Status: Still Living Hx Family Cardiac Disorders: Yes Internal Medicine - H&P: Meds Insulin LISPRO [Admelog Solostar] 0 unit SQ ACHS 02/22/18 [History] Gabapentin [Neurontin] 900 mg PO HS 05/16/18 [History] Insulin Glargine,Hum.rec.anlog [Basaglar [place] U-100] 36 unit SQ HS 09/15/18 [History] Trazodone HCl 100 mg PO HS 09/15/18 [History] Allergy/AdvReac Type Severity Reaction Status Date / Time ondansetron Allergy Hives Verified 09/15/18 19:31 [From Zofran (as hydrochloride)] red dye Allergy See Verified 09/15/18 19:31 Comments All Systems PM: A 10-system review of systems was performed and is negative for pertinent findings except as documented above in the HPI. - Constitutional Vitals: Temp Pulse Resp BP Pulse Ox 101.9 F H 91 16 116/64 95 09/15/18 19:15 09/15/18 20:26 09/15/18 20:26 09/15/18 20:26 09/15/18 20:26 Exam: . Internal Med - H&P Results - Labs CBC & Chem 7: 09/15/18 19:37 09/15/18 19:37 Labs: Short CBC 09/15/18 Range/Units 19:37 WBC 11.0 (4.3-11.1) K/mcL Hgb 11.0 L (11.5-15.4) g/dL Hct 32.8 L (35.3-44.9) % Plt Count 223 (140-400) K/mcL Neutrophils # 8.4 (1.6-8.9) K/mcL BMP 09/15/18 19:37 Sodium 131 L Potassium 3.8 Chloride 97 L Carbon Dioxide 19 L BUN 10 Creatinine 0.50 L Glucose 294 H Calcium 8.9 Urine 09/15/18 Range/Units 19:15 Urine Color Yellow (Yellow) Urine Clarity Clear (Clear) Urine pH 6.0 (5.0-8.0) pH Units Ur Specific [place] 1.026 H (1.010-1.025) Urine Protein Trace (Neg-Trace) mg/dL Urine Glucose (UA) >=1000 H (Normal) mg/dL - ABG Interpretation ABG results: 09/15/18 22:16 VBG pH 7.39 VBG pCO2 33 L VBG pO2 114 H VBG HCO3 20 L - Time Spent With Patient Total time spent is greater than 50% in coordination of care (as documented) at patient's floor/unit and/or counseling patient: Greater than 35 minutes
--- NOTE | 2018-09-16 01:44 | Event Note ---
Date of Encounter: 09/16/18 Time of Encounter: 01:42 Clinical suspicion of kidney abscess has been confirmed on CT scan. Will start cefepime 2grs q12hrs to cover for Enterobacteriaceae after which de-escalation can be done based on urine culture results if they become positive. Will also consult IR as she may benefit from a drainage procedure given the peripheral location and ongoing symptoms; the fluid obtained should be sent for culture as well.
[2018-09-16] MEDS: traZODone 50 MG TABLET PO SCH ×2 (02:13→20:49)
[2018-09-16] MEDS: Gabapentin 300 MG CAPSULE PO SCH ×2 (02:13→20:49)
[2018-09-16 05:19] LABS: Basophils % 0.3 %; Eosinophils % 0.3 %; Hematocrit 32.3 % (35.3-44.9); Hemoglobin 10.6 g/dL (11.5-15.4); Immature Granulocytes % 0.5 % (0-4); Lymphocytes # 1.5 K/mcL (0.6-4.6); Lymphocytes % 19.6 %; Mean Corpuscular HGB Conc 32.8 g/dL (31.6-35.5); Mean Corpuscular Hemoglobin 29.2 pg (28.0-33.3); Mean Platelet Volume 10.6 fL (9.4-12.4); Monocytes # 0.7 K/mcL (0.0-1.3); Monocytes % 9.3 %; Neutrophils # 5.4 K/mcL (1.6-8.9); Platelet Count 204 K/mcL (140-400); Red Blood Count 3.63 M/mcL (3.82-4.97); Red Cell Distribution Width 11.3 % (11.5-14.5); White Blood Count 7.7 K/mcL (4.3-11.1)
[2018-09-16 05:27] LABS: INR 1.4; Prothrombin Time 15.7 Seconds (9.4-12.1)
[2018-09-16 05:30] LABS: Activated Partial Thrombo Time 37.2 Seconds (26.0-36.0)
[2018-09-16 05:39] LABS: BUN/Creatinine Ratio 25 (6-26); Blood Urea Nitrogen 9 mg/dL (6-20); Calcium 8.3 mg/dL (8.6-10.3); Carbon Dioxide 20 mEq/L (23-29); Chloride 107 mEq/L (98-107); Glucose 178 mg/dL (70-105); Magnesium 2.1 mg/dL (1.6-2.6); Osmolality,Calculated 285 (280-300); Potassium 4.3 mEq/L (3.5-5.1); Sodium 136 mEq/L (136-145); eGFR For African Americans > 60 (> 60); eGFR For Non-African Americans > 60 (> 60)
[2018-09-16] MEDS: OXYCODONE Oral CONC 10 MG/0.5 ML ORAL.SYG SL PRN ×3 (06:25→20:51)
[2018-09-16] MEDS: Cefepime HCl 2,000 MG in Water for inj. (sterile) 20 ML 20 ML IVPB SCH ×2 (06:26→17:00)
[2018-09-16 07:12] LABS: Amphetamine Screen,Urine Negative ng/mL (Cutoff=1000); Barbiturate Screen,Urine Negative ng/mL (Cutoff=200)
[2018-09-16 07:13] LABS: Benzodiazepines Screen,Urine Negative ng/mL (Cutoff=300); Cannabinoid Screen,Urine Negative ng/mL (Cutoff = 50); Cocaine Screen,Urine Negative ng/mL (Cutoff= 300); Opiate Screen,Urine Negative ng/mL (Cutoff=300); Phencyclidine Screen,Urine Negative ng/mL (Cutoff=25)
[2018-09-16] MEDS: Insulin LISPRO 300 UNITS/3 ML VIAL SQ SCH ×4 (08:25→20:48)
[2018-09-16] MEDS ORDERED: *HR* FentaNYL (PF) 100 MCG/2 ML VIAL IVP ONE (13:23)
[2018-09-16] MEDS ORDERED: *HR* Midazolam HCl 2 MG/2 ML VIAL IVP ONE (13:23)
[2018-09-16] MEDS ORDERED: 0.9 % Sodium Chloride 500 ML ONE (13:27)
--- NOTE | 2018-09-16 13:50 | IR Procedure Note ---
Date of procedure: 09/16/18 Consent Obtained: Verbal consent, Written consent Timeout: Correct patient and procedure verified, Correct site verified, Time out performed, Skin prep completed Local anesthetic: Lidocaine 1% Was there an household assistant present: No Results/Findings: CT guided aspiration of a small right renal abscess Estimated blood loss (cc): 1 Complications: None; Tolerated procedure well Indications: Renal abscess Procedure Performed: CT guided aspiration Site/Technique: Aspiration performed of the right renal abscess Results/Findings (any specimens removed): 3 cc pus aspirated and sent for cultures Post Procedure Treatment Plan: Bedrest x1 hour Specimen: 3 cc purulent fluid
--- NOTE | 2018-09-16 13:53 | Internal Med Progress Note ---
Hospitalist Progress Note - Encounter Date of Encounter: 09/16/18 Time of Encounter: 12:50 - Subjective Interval History: Ms. Posadas is a 23 year old lady with poorly controlled type 1 diabetes who has been admitted for DKA in the past and was recently seen at [place] emergency room with complaints of abdominal pain, nausea and vomiting were CT scan done showed right perinephric stranding concerning for pyelonephritis so she was started on antibiotic therapy keflex 500mg BID, although her urinalysis was clear. SPt stated she continues to feel nauseated and vomits up to 10 times a day. In the ER she was febrile with T max 101.2and tachycardic. UA was repeated and is also without nitrites, leukocyte esterase or white blood cells. She also have ket onemia with mild hyperglycemia notable evidence of dehydration. She was started on fluids and given an empiric dose of levofloxacin for suspected failure of outpatient therapy to UTI. She was admitted in the hospital and started on IV hydration, ISS and emirical abx Cefepime. Her CT of Abd showed Right renal pyelonephritis with multifocal intraparenchymal abscess formation, largest in the right mid polar region measuring up to 2.6 cm. Pt stated she is feeling better today. Denied any more N/V. Denied any abd pain.. Still has Rt CVA flank pain. - Exam Vitals: Temp Pulse Resp BP Pulse Ox 99.1 F 100 24 114/56 98 09/16/18 11:08 09/16/18 13:37 09/16/18 13:37 09/16/18 13:37 09/16/18 13:37 Exam: Gen: Alert, awake, Oriented to time,place and person Chest: Diminished breath sounds B/L, No wheezing, No crackles, No rales Heart: S1S2+ RRR No murmurs Abd: Soft, NT, BS +, No organomegaly Back: Rt CVA tenderness+ Ext: No edema, pulses are palpable, No calf tenderness Neuro : No acute focal neuro deficits noticed Skin: No rash. - Assessment and Plan (1) Renal abscess, right Current Visit: Yes Status: Acute Assessment and Plan: Reviewed CT of Abd showed Renal abscess Scheduled for CT guided drainage through IR cont empirical abx Cefepime Blood cx - no growth sofar will f.u on Urine cx Consulted ID for further abx management Patient does need to stay in the hospital more than 2 midnights due to her complex medical problems. So we will change her to full admission today. I did review my colleague Dr. Valdivia's H & P including HPI, PMH, PSH, FH, SH, and ROS no changes noticed (2) Acute pyelonephritis Current Visit: Yes Status: Acute Assessment and Plan: as above (3) SIRS (systemic inflammatory response syndrome) Current Visit: Yes Status: Acute Assessment and Plan: Met SIRS criteria with admission Improving cont IV hydration (4) Dehydration Current Visit: Yes Status: Acute Assessment and Plan: Improving on IVF (5) Nausea and vomiting Current Visit: Yes Status: Acute Assessment and Plan: due to above continue symptomatic and supportive care (6) Diabetic ketoacidosis Current Visit: No Status: Acute Assessment and Plan: she was DKA y/d, which resolved with IV hydration and ISS HbA1C 9.2 - Time Spent with Patient Total time spent is greater than 50% in coordination of care (as documented) at patient's floor/unit and/or counseling patient: Internal Medicine: Result - Labs CBC & Chem 7: 09/16/18 04:57 09/16/18 04:57 Labs: Short CBC 09/15/18 09/16/18 Range/Units 19:37 04:57 WBC 11.0 7.7 (4.3-11.1) K/mcL Hgb 11.0 L 10.6 L (11.5-15.4) g/dL Hct 32.8 L 32.3 L (35.3-44.9) % Plt Count 223 204 (140-400) K/mcL Neutrophils # 8.4 5.4 (1.6-8.9) K/mcL BMP 09/15/18 09/16/18 19:37 04:57 Sodium 131 L 136 Potassium 3.8 4.3 Chloride 97 L 107 Carbon Dioxide 19 L 20 L BUN 10 9 Creatinine 0.50 L 0.36 L Glucose 294 H 178 H Calcium 8.9 8.3 L Urine 09/15/18 Range/Units 19:15 Urine Color Yellow (Yellow) Urine Clarity Clear (Clear) Urine pH 6.0 (5.0-8.0) pH Units Ur Specific [place] 1.026 H (1.010-1.025) Urine Protein Trace (Neg-Trace) mg/dL Urine Glucose (UA) >=1000 H (Normal) mg/dL - ABG Interpretation ABG results: PT/INR, D-dimer PT 15.7 Seconds (9.4-12.1) H 09/16/18 04:57 - Impressions Impressions Chest X-Ray 09/16/18 00:05 IMPRESSION: No pneumonia or any other acute cardiopulmonary abnormality. D/ / Moi Rivera / Moi Rivera Interpreting Provider: Moi Rivera Abdomen/Pelvis CT 09/16/18 00:09 IMPRESSION: Right renal pyelonephritis with multifocal intraparenchymal abscess formation, largest in the right mid polar region measuring up to 2.6 cm, as detailed above. Mild periportal edema is nonspecific, possibly reactive to the above versus increased volume states or hepatocellular disease. Splenomegaly. D/ / Moi Rivera / Moi Rivera Interpreting Provider: Moi Rivera Consult Discharge Plan - Plan Referrals: Emmanuelle Lopez, MAG [Primary Care Provider] - 09/24/18 7:00 pm (5) Nausea and vomiting Qualifiers: Vomiting type: unspecified Vomiting Intractability: unspecified Qualified Code(s): R11.2 - Nausea with vomiting, unspecified (6) Diabetic ketoacidosis Qualifiers: Diabetes mellitus type: type 1 Diabetes mellitus complication detail: without coma Qualified Code(s): E10.10 - Type 1 diabetes mellitus with ketoacidosis without coma
[2018-09-16] MEDS: Metoclopramide 10 MG/2 ML VIAL IVP PRN ×2 (14:19→22:55)
--- NOTE | 2018-09-16 14:26 | Infectious Disease Consult ---
Infectious Disease-Consult - Encounter Date/Time Date of Encounter: 09/16/18 Time of Encounter: 14:18 - Data of Consult Patient: new to practice Reason for consult: renal abscess Consult date: 09/16/18 Requesting Physician: Radha Escalera MD Primary Care Provider: Emmanuelle Lopez CNP - [facility] HPI: Patient is a 23-year-old woman who presents to MRSA department last night with abdominal and back pain with extensive nausea vomiting and fevers and chills. We are consulted today for renal abscess and pyelonephritis. Patient is a 23-year-old woman who has a history of diabetes mellitus type 1 diagnosed at age 4 apparently that is poorly controlled and has had multiple admissions in the past for diabetic ketoacidosis. Patient apparently also was having some abdominal pain and presented to outside facility where she was diagnosed with acute pyelonephritis. Patient did have a CT abdomen that time which showed some inflammation around the right kidney. A urinalysis at that time was negative. No urine or blood cultures were obtained. Patient was discharged on cephalexin, Phenergan and Motrin. Patient was not doing any better clinically he shows having more pain prior fevers chills and vomiting so she came back to the emergency department for evaluation. Patient also tells me her blood sugar has been poorly controlled since she gets sick. Since admission, MAXIMUM TEMPERATURE 101.9 Fahrenheit, tachycardia and WBC of 11,000 with 76% neutrophils no bands. Lactic acid was 0.8. CT of the abdomen and pelvis revealed right pyelonephritis with multifocal intraparenchymal abscess formation largest in the right mid polar region measuring up to 2.6 cm. Urine and blood cultures were obtained. She was started on cefepime. Intervention radiology was consulted. Patient is going later for drainage. Currently patient laying in bed and appears comfortable no acute distress. Denies any headache no URI symptoms. She is complaining of swelling in the lips that happens all the time when she gets dehydrated. There is no tongue swelling or wheezing or stridor or rash or hives or any signs of allergic reaction. Patient denies any chest pain or shortness of breath or cough or sputum pro duction. She does have nausea and vomiting and the abdominal pain and this CVA tenderness. She has no urinary symptoms. - ROS Review of Systems: 10 point review of systems done, negative other for what mentioned in history of present illness - Results CBC & Chem 7: 09/16/18 04:57 09/16/18 04:57 - Exam Vitals: Temp Pulse Resp BP Pulse Ox 99.1 F 100 24 114/56 98 09/16/18 11:08 09/16/18 13:37 09/16/18 13:37 09/16/18 13:37 09/16/18 13:37 Exam: GENERAL: Laying in bed, appears comfortable. HEAD: Normocephalic atraumatic EYES: PERRLA, EOMI, no conjunctival hemorrhage, sclera anicteric ENT: Mucous membranes very dry, positive oral thrush. lips swollen but patient says that's recurrent NECK: Supple. No meningeal signs. No masses LUNGS: Chest expanding symmetrically. Lungs sounds audible both lung porras. No wheezing, no rhonchi CV: RRR, S1S2, ABDOMEN: Soft,tenderness right upper and lower quadrant. bowel sounds hypoactive BACK: right CVA tenderness. Normal inspection. No tenderness over the spine EXTREMITY: Adequate perfusion. No joint effusion. SKIN: Normal color. No rash. NEURO: Awake alert oriented 3. No obvious focal deficit PSYCH: Calm and appropriate. No agitation. Insulin LISPRO [Admelog Solostar] 0 unit SQ ACHS 02/22/18 [History] Gabapentin [Neurontin] 900 mg PO HS 05/16/18 [History] Insulin Glargine,Hum.rec.anlog [Basaglar Kwikpen U-100] 36 unit SQ HS 09/15/18 [History] Trazodone HCl 100 mg PO HS 09/15/18 [History] Allergy/AdvReac Type Severity Reaction Status Date / Time ondansetron Allergy Hives Verified 09/15/18 19:31 [From Zofran (as hydrochloride)] red dye Allergy See Verified 09/15/18 19:31 Comments - Assessment and Plan (1) Sepsis Current Visit: Yes Status: Acute had 2 sirs criteria on admission Secondary to pyelonephritis and renal abscess Qualifiers: Sepsis type: sepsis due to unspecified organism Qualified Code(s): A41.9 - Sepsis, unspecified organism SNOMED Code(s): 80785159 (2) Renal abscess, right Current Visit: Yes Status: Acute Seen on the CT abdomen and pelvis 09/16/2018 size 2.5 cm Status post drainage by interventional radiology. Material extracted and sent for cultures Urine cultures pending Patient currently on cefepime Await cultures to finalize and then will tailor antibiotics accordingly Duration of treatment depends on clinical picture but at least 3 weeks Monitor labs and for drug toxicity SNOMED Code(s): 4407721 (3) Pyelonephritis Current Visit: Yes Status: Acute Causative organism not clear Initially noted on CT abdomen and pelvis 09/07/2018. Urine culture was negative. Patient was treated with Keflex with progression of the disease SNOMED Code(s): 24019112 (4) Oral thrush Current Visit: Yes Status: Acute start nystatin swish and swallow SNOMED Code(s): 31420758 (5) Hyperglycemia due to type 1 diabetes mellitus Current Visit: No Status: Acute SNOMED Code(s): 877615788741649, 815486635938552 (6) Dehydration Current Visit: Yes Status: Acute aggressive hydration SNOMED Code(s): 40693915 (7) Peripheral neuropathy Current Visit: Yes Status: Acute Qualifiers: Peripheral neuropathy type: polyneuropathy, unspecified Qualified Code(s): G62.9 - Polyneuropathy, unspecified SNOMED Code(s): 017341051 (8) Swelling of both lips Current Visit: Yes Status: Acute patient states she gets swollen lips with dehydration no signs of allergic reaction or angioedema will keep a close look SNOMED Code(s): 719263058 Past Med Surg Social Fam HX - Past Medical History Medical history: diabetes Additional medical history: neuropathy Psychiatric history: anxiety, depression - Past Surgical History Surgical History: other Additional surgical history: age 7 - Social History Smoking Status: Former smoker Smokeless Tobacco Status: No Alcohol use: none Drug use: none - Family History Mother Living Status: Still Living Hx Family Cardiac Disorders: Yes Consult Discharge Plan - Plan Referrals: Emmanuelle Lopez CNP [Primary Care Provider] - 09/24/18 7:00 pm
[2018-09-16] MEDS: Nystatin SUSP 5 ML UD.LIQ PO SCH ×2 (17:00→20:50)
[2018-09-16] MEDS: Acetaminophen 325 MG TABLET PO PRN (17:00)
[2018-09-17] MEDS ORDERED: Insulin DETEMIR 100 UNIT/ML X5UNITS SQ ONE
[2018-09-17] MEDS: Cefepime HCl 2,000 MG in Water for inj. (sterile) 20 ML 20 ML IVPB SCH ×3 (05:14→20:41)
[2018-09-17] MEDS: OXYCODONE Oral CONC 10 MG/0.5 ML ORAL.SYG SL PRN ×4 (05:15→21:40)
--- NOTE | 2018-09-17 05:48 | Event Note ---
Date of Encounter: 09/16/18 Time of Encounter: 21:47 Alerted by pts. nurse GELY Acevedo that the pt. stated she takes 36 units of long-acting insulin at home which is not currently ordered. Pt. received 20 units of Levemir the previous night as a one-time order. BG at this time was 197 and did not meet HS SS coverage. Nurse instructed to check BG hourly. Alerted at 23:46 that BG was now 325. One-time order of 20 units of Levemir placed w/instructions to check BG Q2HR. Alerted at 01:58 that BG was now 327. Alerted at 03:37 that BG was now 346. Nurse reported that the pt. had been drinking diet pop. Nurse educated pt. and instructed the pt. to drink water instead. Alerted at 04:56 that the pts. boyfriend was bringing snacks and pop into the room. Nurse reported she has educated the pt. three times throughout the night regarding diet compliance. Went to see the pt. immediately to educate her and her SO myself. I instructed both that there are to be no snacks, pop, fast food, pizza, etc. brought into the room from this point on. Pt. instructed to follow the diet outlined for her to ensure that her BG is controlled. I asked the pt. to repeat back to me what I had told her which she did. Pt. expressed understanding and agreement to this plan. SO remained silent. Nurse instructed to place nurse's note for day team to ensure compliance and to continue monitoring the pt. closely and alert me immediately of any situations.
[2018-09-17] MEDS: Nystatin SUSP 5 ML UD.LIQ PO SCH ×4 (07:45→20:42)
[2018-09-17] MEDS: Insulin LISPRO 300 UNITS/3 ML VIAL SQ SCH ×4 (07:45→20:30)
[2018-09-17] MEDS: Insulin DETEMIR 100 UNIT/ML X5UNITS SQ SCH ×2 (09:34→20:42)
--- NOTE | 2018-09-17 11:23 | Infectious Disease Progress No ---
ID Progress Note Date of Encounter: 09/17/18 Time of Encounter: 09:35 - Subjective Subjective: Patient seen and examined. No acute events noted overnight. Patient states overall she feels a little bit better today. Denies fevers, chills, or rigors. Denies headache or neck pain. Denies chest pain, shortness of breath, or cough. Denies nausea, vomiting, diarrhea, or constipation. She reports her last bowel movement was 3 days ago, which is normal for her. She complains of pain at the renal abscess aspiration site. States her abdominal pain is better. Denies urinary complaints. States her appetite is improved. States oral thrush is better. Denies skin rashes. - Objective CBC & Chem 7: 09/18/18 07:10 09/18/18 07:10 - Exam Vitals: Temp Pulse Resp BP Pulse Ox 99.4 F 86 18 110/57 97 09/17/18 07:01 09/17/18 07:01 09/17/18 07:01 09/17/18 07:01 09/17/18 07:01 Exam: Head: Atraumatic, normal inspection, normocephalic. Eye: EOMI, PERRLA, no scleral icterus noted. ENT: Mucous membranes moist. No odontogenic infection noted. Neck: Normal inspection, no meningismus. Respiratory: Clear to auscultation. No rales, respiratory distress, rhonchi, or wheezes noted. Cardiovascular: Regular rate and rhythm, S1 and S2 audible. No murmurs, rubs, or gallops. GI: Soft, nondistended, normal bowel sounds. Nontender. Extremities:No joint swelling, pedal edema, or tenderness noted. Back: Normal inspection. No vertebral tenderness noted. Renal abscess aspiration site noted to the right flank with Band-Aid intact. No surrounding e rythema, warmth, or drainage. Mild right-sided CVA tenderness noted. Neurological: Alert, oriented 3, no focal deficits. Psychiatric: normal affect, normal mood. Skin: Dry, intact, warm. Normal color. No rashes. - Assessment and Plan (1) Sepsis Current Visit: Yes Status: Acute The patient had 2 sepsis criteria on admission. Likely secondary to pyelonephritis and renal abscess. Improved. Febrile overnight with a MAXIMUM TEMPERATURE of 101.3 the past 24 hours. Continues to have some intermittent tachycardia. No labs checked today. Blood cultures drawn 09/15/18 are no growth 1 set. Repeat blood cultures drawn 09/17/18 are pending 2 sets. Qualifiers: Sepsis type: sepsis due to unspecified organism Qualified Code(s): A41.9 - Sepsis, unspecified organism SNOMED Code(s): 90355565 (2) Renal abscess, right Current Visit: Yes Status: Acute Seen on the CT abdomen and pelvis 09/16/2018. Size 2.5 cm. Status post drainage by interventional radiology. Purulent material extracted and sent for cultures, which are pending. Gram stain positive for GNR. Urine cultures negative. Patient currently on cefepime. SNOMED Code(s): 9198510 (3) Pyelonephritis Current Visit: Yes Status: Acute Causative organism not clear. Initially noted on CT abdomen and pelvis 09/07/2018. Urine culture was negative. Patient was treated with Keflex with progression of the disease. Currently on cefepime. SNOMED Code(s): 50990295 (4) Oral thrush Current Visit: Yes Status: Acute Improved. Continue nystatin swish and swallow. SNOMED Code(s): 70701937 (5) Swelling of both lips Current Visit: Yes Status: Acute Patient states she gets swollen lips with dehydration. No signs of allergic reaction or angioedema. Improved. SNOMED Code(s): 058478779 (6) Hyperglycemia due to type 1 diabetes mellitus Current Visit: No Status: Acute Recommend aggressive glucose monitoring to assist with adequate infection control. Management per the primary team. Discussed with the patient. SNOMED Code(s): 862361599783673, [id number] (7) Dehydration Current Visit: Yes Status: Acute Aggressive hydration. Management per the primary team. SNOMED Code(s): 77770181 (8) Peripheral neuropathy Current Visit: Yes Status: Chronic Qualifiers: Peripheral neuropathy type: polyneuropathy, unspecified Qualified Code(s): G62.9 - Polyneuropathy, unspecified SNOMED Code(s): 074946646 - Recommendations Recommendations: Daily CBC with diff and BMP. Await blood cultures to finalize. Await abscess cultures to finalize. Aggressive glucose management per the primary team. IV hydration per the primary team. Continue cefepime 2 g IV every 12 hours. Family cultures and de-escalate/when able. Duration of treatment depends on the clinical picture. Monitor renal function and dose adjust antibiotics. Consult Discharge Plan - Plan Referrals: Emmanuelle Lopez CNP [Primary Care Provider] - 09/24/18 7:00 pm - Attending Attestation I have personally performed a face to face evaluation on this patient. I have reviewed and agree with the care plan. History and Exam by me shows: Assessment and plan: 1.Sepsis 2.Renal abscess on the right side is 2.5 cm status post I&D of purulent material cultures gram-negative sean 3.Diabetes mellitus type 1 4.Abdominal pain 5.Nausea and vomiting 6.Peripheral neuropathy Recommendations Daily CBC with diff and BMP. Await blood cultures to finalize. Await abscess cultures to finalize. Aggressive glucose management per the primary team. IV hydration per the primary team. Continue cefepime 2 g IV every 12 hours. Family cultures and de-escalate/when able. Duration of treatment depends on the clinical picture. Monitor renal function and dose adjust antibiotics.
--- NOTE | 2018-09-17 13:05 | Internal Med Progress Note ---
Hospitalist Progress Note - Encounter Date of Encounter: 09/17/18 Time of Encounter: 13:03 - Subjective Interval History: Ms. Posadas is a 23 year old lady with poorly controlled type 1 diabetes who has been admitted for DKA in the past and was recently seen at [place] emergency room with complaints of abdominal pain, nausea and vomiting were CT scan done showed right perinephric stranding concerning for pyelonephritis so she was started on antibiotic therapy keflex 500mg BID, although her urinalysis was clear. SPt stated she continues to feel nauseated and vomits up to 10 times a day. In the ER she was febrile with T max 101.2and tachycardic. UA was repeated and is also without nitrites, leukocyte esterase or white blood cells. She also have ket onemia with mild hyperglycemia notable evidence of dehydration. She was started on fluids and given an empiric dose of levofloxacin for suspected failure of outpatient therapy to UTI. She was admitted in the hospital and started on IV hydration, ISS and emirical abx Cefepime. Her CT of Abd showed Right renal pyelonephritis with multifocal intraparenchymal abscess formation, largest in the right mid polar region measuring up to 2.6 cm. She did have abscess aspiration done y/d by IR. She does c/o mild pain at aspiration site area. Pt stated she is feeling better today. Still having fever spikes.. T max@ 101.3. Her Rt CVA / flank pain also better today. - Exam Vitals: Temp Pulse Resp BP Pulse Ox 100.2 F H 86 16 114/67 98 09/17/18 11:47 09/17/18 11:47 09/17/18 11:47 09/17/18 11:47 09/17/18 11:47 Exam: Gen: Alert, awake, Oriented to time,place and person HEENT: Oral thrush+ Chest: Diminished breath sounds B/L, No wheezing, No crackles, No rales Heart: S1S2+ RRR No murmurs Abd: Soft, NT, BS +, No organomegaly Back: Rt CVA tenderness+ Ext: No edema, pulses are palpable, No calf tenderness Neuro : No acute focal neuro deficits noticed Skin: No rash. - Assessment and Plan (1) Renal abscess, right Current Visit: Yes Status: Acute Assessment and Plan: Reviewed CT of Abd showed Renal abscess s/p Renal abscess aspiration still having fever spikes cont empirical abx Cefepime Blood cx - no growth sofar Aspiration fluid cx - G-ve rods Appreciate ID recommendations (2) Acute pyelonephritis Current Visit: Yes Status: Acute Assessment and Plan: Urine cx - no growth blood cx - no growth care as above (3) SIRS (systemic inflammatory response syndrome) Current Visit: Yes Status: Acute Assessment and Plan: Met SIRS / Sepsis criteria with admission Improving cont IV hydration (4) Dehydration Current Visit: Yes Status: Acute Assessment and Plan: Improving on IVF (5) Nausea and vomiting Current Visit: Yes Status: Acute Assessment and Plan: due to above continue symptomatic and supportive care (6) Diabetic ketoacidosis Current Visit: No Status: Acute Assessment and Plan: she was in mild DKA up on admission Resolved DKA with IV hydration and ISS HbA1C 9.2 cont ISS + Levemir (7) Diabetes mellitus Current Visit: Yes Status: Acute (8) Oral thrush Current Visit: Yes Status: Acute Assessment and Plan: on Nystatin - Time Spent with Patient Total time spent is greater than 50% in coordination of care (as documented) at patient's floor/unit and/or counseling patient: Internal Medicine: Result - Labs CBC & Chem 7: 09/16/18 04:57 09/16/18 04:57 - ABG Interpretation ABG results: PT/INR, D-dimer PT 15.7 Seconds (9.4-12.1) H 09/16/18 04:57 - Impressions Impressions Abscess Drainage CT 09/16/18 00:00 IMPRESSION: CT-guided right renal abscess aspiration. 3 cc of purulent fluid was aspirated and sent for cultures. No immediate complications. D/ / Prasanna Stuart MD / Prasanna Stuart MD Interpreting Provider: Prasanna Stuart MD Consult Discharge Plan - Plan Referrals: Emmanuelle Lopez, APPLIED STATISTICIAN [Primary Care Provider] - 09/24/18 7:00 pm ___ (5) Nausea and vomiting Qualifiers: Vomiting type: unspecified Vomiting Intractability: unspecified Qualified Code(s): R11.2 - Nausea with vomiting, unspecified (6) Diabetic ketoacidosis Qualifiers: Diabetes mellitus type: type 1 Diabetes mellitus complication detail: without coma Qualified Code(s): E10.10 - Type 1 diabetes mellitus with ketoacidosis without coma (7) Diabetes mellitus Qualifiers: Diabetes mellitus type: type 1 Diabetes mellitus complication status: without complication Qualified Code(s): E10.9 - Type 1 diabetes mellitus without complications
[2018-09-17] MEDS: 0.9 % Sodium Chloride 1,000 ML IVC SCH (13:21)
[2018-09-17] MEDS: Acetaminophen 325 MG TABLET PO PRN (15:58)
[2018-09-17] MEDS: Metoclopramide 10 MG/2 ML VIAL IVP PRN ×2 (17:13→21:40)
[2018-09-17] MEDS: Gabapentin 300 MG CAPSULE PO SCH (20:41)
[2018-09-17] MEDS: traZODone 50 MG TABLET PO SCH (20:42)
[2018-09-18] MEDS: Acetaminophen 325 MG TABLET PO PRN (03:04)
[2018-09-18] MEDS: 0.9 % Sodium Chloride 1,000 ML IVC SCH ×2 (04:24→16:48)
[2018-09-18] MEDS: OXYCODONE Oral CONC 10 MG/0.5 ML ORAL.SYG SL PRN ×3 (04:51→21:26)
[2018-09-18] MEDS: Cefepime HCl 2,000 MG in Water for inj. (sterile) 20 ML 20 ML IVPB SCH (04:57)
[2018-09-18 07:40] LABS: Eosinophils # 0.1 K/mcL (0.0-0.6); Eosinophils % 1.3 %; Hematocrit 28.9 % (35.3-44.9); Hemoglobin 9.5 g/dL (11.5-15.4); Immature Granulocytes % 0.5 % (0-4); Lymphocytes # 1.1 K/mcL (0.6-4.6); Lymphocytes % 28.5 %; Mean Corpuscular HGB Conc 32.9 g/dL (31.6-35.5); Mean Corpuscular Hemoglobin 29.2 pg (28.0-33.3); Mean Corpuscular Volume 88.9 fL (83.0-100.0); Mean Platelet Volume 10.6 fL (9.4-12.4); Monocytes # 0.4 K/mcL (0.0-1.3); Monocytes % 9.2 %; Neutrophils # 2.4 K/mcL (1.6-8.9); Platelet Count 200 K/mcL (140-400); Red Blood Count 3.25 M/mcL (3.82-4.97); Red Cell Distribution Width 11.1 % (11.5-14.5); Segmented Neutrophils % 60.5 %; White Blood Count 3.9 K/mcL (4.3-11.1)
[2018-09-18 07:56] LABS: BUN/Creatinine Ratio 19 (6-26); Blood Urea Nitrogen 7 mg/dL (6-20); Calcium 8.4 mg/dL (8.6-10.3); Carbon Dioxide 29 mEq/L (23-29); Chloride 104 mEq/L (98-107); Glucose 110 mg/dL (70-105); Osmolality,Calculated 291 (280-300); Potassium 3.6 mEq/L (3.5-5.1); Sodium 141 mEq/L (136-145); eGFR For African Americans > 60 (> 60); eGFR For Non-African Americans > 60 (> 60)
[2018-09-18] MEDS: Insulin LISPRO 300 UNITS/3 ML VIAL SQ SCH ×4 (08:05→21:09)
[2018-09-18] MEDS: Nystatin SUSP 5 ML UD.LIQ PO SCH ×4 (08:10→21:08)
[2018-09-18] MEDS: Insulin DETEMIR 100 UNIT/ML X5UNITS SQ SCH ×2 (08:10→21:09)
--- NOTE | 2018-09-18 12:38 | Internal Med Progress Note ---
Hospitalist Progress Note - Encounter Date of Encounter: 09/18/18 Time of Encounter: 11:00 - Subjective Interval History: Ms. Posadas is a 23 year old lady with poorly controlled type 1 diabetes who has been admitted for DKA in the past and was recently seen at [place] emergency room with complaints of abdominal pain, nausea and vomiting were CT scan done showed right perinephric stranding concerning for pyelonephritis so she was started on antibiotic therapy keflex 500mg BID, although her urinalysis was clear. SPt stated she continues to feel nauseated and vomits up to 10 times a day. In the ER she was febrile with T max 101.2and tachycardic. UA was repeated and is also without nitrites, leukocyte esterase or white blood cells. She also have ket onemia with mild hyperglycemia notable evidence of dehydration. She was started on fluids and given an empiric dose of levofloxacin for suspected failure of outpatient therapy to UTI. She was admitted in the hospital and started on IV hydration, ISS and emirical abx Cefepime. Her CT of Abd showed Right renal pyelonephritis with multifocal intraparenchymal abscess formation, largest in the right mid polar region measuring up to 2.6 cm. She did have abscess aspiration done y/d by IR. She does c/o mild pain at aspiration site area. Pt stated she is feeling better today. Still having fever spikes.. T max@ 100.2. Her Rt CVA / flank pain also better today. - Exam Vitals: Temp Pulse Resp BP Pulse Ox 98.7 F 91 15 105/68 96 09/18/18 10:27 09/18/18 10:27 09/18/18 10:27 09/18/18 10:27 09/18/18 10:27 Exam: Gen: Alert, awake, Oriented to time,place and person HEENT: Oral thrush+ Chest: Diminished breath sounds B/L, No wheezing, No crackles, No rales Heart: S1S2+ RRR No murmurs Abd: Soft, NT, BS +, No organomegaly Back: Rt CVA tenderness+ Ext: No edema, pulses are palpable, No calf tenderness Neuro : No acute focal neuro deficits noticed Skin: No rash. - Assessment and Plan (1) Renal abscess, right Current Visit: Yes Status: Acute Assessment and Plan: Reviewed CT of Abd showed Renal abscess s/p Renal abscess aspiration still having fever spikes cont empirical abx Cefepime Blood cx - no growth sofar Aspiration fluid cx - E. Coli May need 2 weeks of Abx therapy If pt remained afebrile for 24 hrs will consider to d/c home on PO abx Appreciate ID recommendations (2) Acute pyelonephritis Current Visit: Yes Status: Acute Assessment and Plan: Urine cx - no growth blood cx - no growth care as above (3) SIRS (systemic inflammatory response syndrome) Current Visit: Yes Status: Acute Assessment and Plan: Met SIRS / Sepsis criteria with admission Improving cont IV hydration (4) Diabetic ketoacidosis Current Visit: No Status: Acute Assessment and Plan: she was in mild DKA up on admission Resolved DKA with IV hydration and ISS HbA1C 9.2 cont ISS + Levemir (5) Dehydration Current Visit: Yes Status: Acute Assessment and Plan: Improving on IVF (6) Nausea and vomiting Current Visit: Yes Status: Acute Assessment and Plan: due to above continue symptomatic and supportive care (7) Diabetes mellitus Current Visit: Yes Status: Acute (8) Oral thrush Current Visit: Yes Status: Acute Assessment and Plan: on Nystatin Improving - Time Spent with Patient Total time spent is greater than 50% in coordination of care (as documented) at patient's floor/unit and/or counseling patient: Internal Medicine: Result - Labs CBC & Chem 7: 09/18/18 07:10 09/18/18 07:10 Labs: Short CBC 09/18/18 Range/Units 07:10 WBC 3.9 L (4.3-11.1) K/mcL Hgb 9.5 L (11.5-15.4) g/dL Hct 28.9 L (35.3-44.9) % Plt Count 200 (140-400) K/mcL Neutrophils # 2.4 (1.6-8.9) K/mcL BMP 09/18/18 07:10 Sodium 141 Potassium 3.6 Chloride 104 Carbon Dioxide 29 BUN 7 Creatinine 0.37 L Glucose 110 H Calcium 8.4 L - ABG Interpretation ABG results: PT/INR, D-dimer PT 15.7 Seconds (9.4-12.1) H 09/16/18 04:57 Consult Discharge Plan - Plan Referrals: Emmanuelle Lopez, MAG [Primary Care Provider] - 09/24/18 7:00 pm (4) Diabetic ketoacidosis Qualifiers: Diabetes mellitus type: type 1 Diabetes mellitus complication detail: without coma Qualified Code(s): E10.10 - Type 1 diabetes mellitus with ketoacidosis without coma (6) Nausea and vomiting Qualifiers: Vomiting type: unspecified Vomiting Intractability: unspecified Qualified Code(s): R11.2 - Nausea with vomiting, unspecified (7) Diabetes mellitus Qualifiers: Diabetes mellitus type: type 1 Diabetes mellitus complication status: without complication Qualified Code(s): E10.9 - Type 1 diabetes mellitus without comp lications
[2018-09-18] MEDS: Metoclopramide 10 MG/2 ML VIAL IVP PRN (12:40)
[2018-09-18] MEDS ORDERED: cefTRIAXone 2,000 MG in 0.9 % Sodium Chloride Mini Bag 100 ML IVPB SCH (13:00)
--- NOTE | 2018-09-18 13:39 | Infectious Disease Progress No ---
ID Progress Note Date of Encounter: 09/18/18 Time of Encounter: 09:50 - Subjective Subjective: Patient seen and examined. No acute events noted overnight. Patient states overall she feels a little bit better today. Denies fevers, chills, or rigors. Denies headache or neck pain. Denies chest pain, shortness of breath, or cough. Denies nausea, vomiting, diarrhea, or constipation. She reports her last bowel movement was 4 days ago, which is normal for her. She complains of pain at the renal abscess aspiration site. States her abdominal pain is better, but persists and is generalized. Denies urinary complaints. States her appetite is improved. States oral thrush is better. Denies skin rashes. - Objective CBC & Chem 7: 09/18/18 07:10 09/18/18 07:10 - Exam Vitals: Temp Pulse Resp BP Pulse Ox 98.7 F 91 15 105/68 96 09/18/18 10:27 09/18/18 10:27 09/18/18 10:27 09/18/18 10:27 09/18/18 10:27 Exam: Head: Atraumatic, normal inspection, normocephalic. Eye: EOMI, PERRLA, no scleral icterus noted. ENT: Mucous membranes moist. No odontogenic infection noted. Neck: Normal inspection, no meningismus. Respiratory: Clear to auscultation. No rales, respiratory distress, rhonchi, or wheezes noted. Cardiovascular: Regular rate and rhythm, S1 and S2 audible. No murmurs, rubs, or gallops. GI: Soft, nondistended, normal bowel sounds. Nontender. Extremities:No joint swelling, pedal edema, or tenderness noted. Back: Normal inspection. No vertebral tenderness noted. Renal abscess aspiration site noted to the right flank with Band-Aid intact. No surrounding erythema, warmth, or drainage. Mild right-sided CVA tenderness noted. Neurological: Alert, oriented 3, no focal deficits. Psychiatric: normal affect, normal mood. Skin: Dry, intact, warm. Normal color. No rashes. - Assessment and Plan (1) Sepsis Current Visit: Yes Status: Acute The patient had 2 sepsis criteria on admission. Likely secondary to pyelonephritis and renal abscess. Improved. Febrile overnight with a MAXIMUM TEMPERATURE of 100.7 the past 24 hours. Tachycardia resolved. WBC improved. Blood cultures drawn 09/15/18 are no growth 1 set. Repeat blood cultures drawn 09/17/18 are NGTD 2 sets. Qualifiers: Sepsis type: sepsis due to unspecified organism Qualified Code(s): A41.9 - Sepsis, unspecified organism SNOMED Code(s): 33119437 (2) Renal abscess, right Current Visit: Yes Status: Acute Seen on the CT abdomen and pelvis 09/16/2018. Size 2.5 cm. Causative organism: E. coli Status post drainage by interventional radiology. Purulent material extracted and sent for cultures Urine cultures negative. Concern for seeding from other source. Patient currently on cefepime. SNOMED Code(s): 1618566 (3) Pyelonephritis Current Visit: Yes Status: Acute Causative organism not clear. Initially noted on CT abdomen and pelvis 09/07/2018. Urine culture was negative. Patient was treated with Keflex with progression of the disease. Currently on cefepime. SNOMED Code(s): 25588963 (4) Oral thrush Current Visit: Yes Status: Acute Improved. Continue nystatin swish and swallow. SNOMED Code(s): 49318003 (5) Swelling of both lips Current Visit: Yes Status: Acute Patient states she gets swollen lips with dehydration. No signs of allergic reaction or angioedema. Improved. SNOMED Code(s): 516974486 (6) Hyperglycemia due to type 1 diabetes mellitus Current Visit: No Status: Acute Recommend aggressive glucose monitoring to assist with adequate infection control. Management per the primary team. Discussed with the patient. SNOMED Code(s): 963932897499401, [id number] (7) Dehydration Current Visit: Yes Status: Acute Aggressive hydration. Management per the primary team. SNOMED Code(s): 82988823 (8) Peripheral neuropathy Current Visit: Yes Status: Chronic Qualifiers: Peripheral neuropathy type: polyneuropathy, unspecified Qualified Code(s): G62.9 - Polyneuropathy, unspecified SNOMED Code(s): 220162265 - Recommendations Recommendations: Daily CBC with diff and BMP. Await blood cultures to finalize. Repeat blood cultures x2 sets now. Aggressive glucose management per the primary team. IV hydration per the primary team. Discontinue Cefepime. Start Rocephin 2 grams IV daily. Duration of treatment depends on the clinical picture. The patient failed oral antibiotics, also will likely need 2-4 weeks of IV antibiotics on discharge. Monitor renal function and dose adjust antibiotics. Consults vascular access team for IV placement prior to discharge. billing services manager to assist with discharge planning. Consult Discharge Plan - Plan Referrals: Emmanuelle Lopez CNP [Primary Care Provider] - 09/24/18 7:00 pm - Attending Attestation I have personally performed a face to face evaluation on this patient. I have reviewed and agree with the care plan. History and Exam by me shows: Assessment and plan: 1.Sepsis 2.Renal abscess on the right side is 2.5 cm status post I&D of purulent material cultures gram-negative sean 3.Diabetes mellitus type 1 4.Abdominal pain 5.Nausea and vomiting 6.Peripheral neuropathy Recommendations: Patient continues to feel ill and still has diffuse abdominal pain and has intractable nausea and vomiting. Not sure if there is an intra-abdominal process going on Consider GI to evaluate or surgery Consider repeating CT abdomen and pelvis with oral and IV contrast Also consider checking lipase and amylase Patient might have baseline gastroparesis because of her diabetes mellitus
[2018-09-18] MEDS ORDERED: cefTRIAXone 2,000 MG in Water for inj. (sterile) 20 ML 20 ML IVP SCH (14:00)
[2018-09-18] MEDS: traZODone 50 MG TABLET PO SCH (21:08)
[2018-09-18] MEDS: Gabapentin 300 MG CAPSULE PO SCH (21:08)
[2018-09-19] MEDS: 0.9 % Sodium Chloride 1,000 ML IVC SCH (01:42)
[2018-09-19 01:50] LABS: Basophils % 0.5 %; Eosinophils # 0.1 K/mcL (0.0-0.6); Eosinophils % 1.6 %; Hematocrit 29.5 % (35.3-44.9); Hemoglobin 9.8 g/dL (11.5-15.4); Immature Granulocytes % 0.7 % (0-4); Lymphocytes # 1.4 K/mcL (0.6-4.6); Lymphocytes % 31.5 %; Mean Corpuscular HGB Conc 33.2 g/dL (31.6-35.5); Mean Corpuscular Hemoglobin 29.1 pg (28.0-33.3); Mean Corpuscular Volume 87.5 fL (83.0-100.0); Mean Platelet Volume 10.7 fL (9.4-12.4); Monocytes # 0.3 K/mcL (0.0-1.3); Monocytes % 6.1 %; Neutrophils # 2.6 K/mcL (1.6-8.9); Platelet Count 242 K/mcL (140-400); Red Blood Count 3.37 M/mcL (3.82-4.97); Segmented Neutrophils % 59.6 %; White Blood Count 4.3 K/mcL (4.3-11.1)
[2018-09-19 07:49] VITALS: BP 115/71
[2018-09-19] MEDS: Insulin LISPRO 300 UNITS/3 ML VIAL SQ SCH (08:25)
[2018-09-19] MEDS: Nystatin SUSP 5 ML UD.LIQ PO SCH (08:27)
[2018-09-19] MEDS: OXYCODONE Oral CONC 10 MG/0.5 ML ORAL.SYG SL PRN (08:38)
[2018-09-19] MEDS ORDERED: Insulin DETEMIR 100 UNIT/ML X5UNITS SQ SCH (09:00)
--- NOTE | 2018-09-19 10:11 | Discharge Summary ---
- NOTES TO OUTPATIENT PROVIDER Notes to Outpatient Provider: Follow up with Urology as outpatient Orders not resulted at time of discharge: Pending orders 09/15/18 21:40 Culture,Blood [BC] Stat 09/17/18 05:27 Culture,Blood [BC] AM 0400 09/18/18 11:45 Culture,Blood [BC] Stat Date of Encounter: 09/19/18 Time of Encounter: 07:45 - Discharge Diagnosis (1) Sepsis Priority: Primary Status: Acute Qualifiers: Sepsis type: sepsis due to unspecified organism Qualified Code(s): A41.9 - Sepsis, unspecified organism (2) Renal abscess, right Priority: Secondary Status: Acute (3) Diabetic ketoacidosis Priority: Secondary Status: Acute Qualifiers: Diabetes mellitus type: type 1 Diabetes mellitus complication detail: wit hout coma Qualified Code(s): E10.10 - Type 1 diabetes mellitus with ketoacidosis without coma (4) SIRS (systemic inflammatory response syndrome) Priority: Secondary Status: Acute (5) Dehydration Priority: Secondary Status: Acute (6) Acute pyelonephritis Priority: Secondary Status: Acute (7) Oral thrush Priority: Secondary Status: Acute (8) Diabetes mellitus Priority: Secondary Status: Acute Qualifiers: Diabetes mellitus type: type 1 Diabetes mellitus complication status: without complication Qualified Code(s): E10.9 - Type 1 diabetes mellitus without complications Hospital course: Ms. Posadas is a 23 year old female with history of type 1 diabetes who was admitted sepsis and mild DKA secondary to right renal abscess. Underwent CT- guided drainage by IR on 09/16 and a free culture grew Escherichia coli only resistant to ampicillin and Unasyn. Patient had been on 4 days of IV antibiotics with resolution of fever and leukocytosis. Remained afebrile > 24 hours prior to d/c and blood cultures on 3 occasions were all -ve. She will be discharged home on a total of 14 days of Omnicef and Urology follow up as outpatient. OF note, she was also treated with nystatin swish and swallow for oral thrush and will complete a total of 7 days. Discharge discussed with: patient, family, nurse - Time Spent with Patient Total time spent providing and/or coordinating discharge services: 33 mins - Discharge Medications Prescriptions: New HYDROcodone/Acet 5/325 mg [[place] 5-325 mg] 1 tab PO Q6H PRN 3 Days #12 tab PRN Reason: Severe Pain Cefdinir [Omnicef] 300 mg PO BID 10 Days #20 capsule Nystatin [Nystatin Suspension] 500,000 units PO QID 4 Days #120 ml Continued Insulin Glargine,Hum.rec.anlog [Basaglar Kwikpen U-100] 36 unit SQ HS Trazodone HCl 100 mg PO HS Insulin LISPRO [Admelog Solostar] 0 unit SQ ACHS Gabapentin [Neurontin] 900 mg PO HS Home Medications: Insulin LISPRO [Admelog Solostar] 0 unit SQ ACHS 02/22/18 [History] Gabapentin [Neurontin] 900 mg PO HS 05/16/18 [History] Insulin Glargine,Hum.rec.anlog [Basaglar Kwikpen U-100] 36 unit SQ HS 09/15/18 [History] Trazodone HCl 100 mg PO HS 09/15/18 [History] Cefdinir [Omnicef] 300 mg PO BID 10 Days #20 capsule 09/19/18 [Rx] HYDROcodone/Acet 5/325 mg [[place] 5-325 mg] 1 tab PO Q6H PRN 3 Days #12 tab 09/19/18 [Rx] Nystatin [Nystatin Suspension] 500,000 units PO QID 4 Days #120 ml 09/19/18 [Rx] Allergies/Adverse Reactions: Allergy/AdvReac Type Severity Reaction Status Date / Time ondansetron Allergy Hives Verified 09/15/18 19:31 [From Zofran (as hydrochloride)] red dye Allergy See Verified 09/15/18 19:31 Comments Date of admission: 09/16/18 09:25 Primary care physician: Emmanuelle Lopez CNP Consults: 09/16/18 01:45 Consult to Interventional Radiology [CONS] Routine Consulting Provider: Radiology Interventional Cols Reason for Consult: Please evaluate for percutaneous drainage procedure on 23 year old woman with persistent right flank pain, fever, chills and intractable nausea/vomiting now seen to have a right kidney abscess. Call Completed: Yes 09/16/18 09:22 Consult to Infectious Diseases [CONS] Routine Consulting Provider: Infectious Disease Trisha Reason for Consult: Acute pyelonephritis and Rt renal abscess Time Notified: 09:24 Call Completed: Yes 09/18/18 15:06 Consult to Invasive Line Access Team [CONS] Routine Reason for Consult: longterm atb Line Type: Midline - Constitutional Vitals: Temp Pulse Resp BP Pulse Ox 98.3 F 89 15 115/71 95 09/19/18 07:44 09/19/18 07:44 09/19/18 07:44 09/19/18 07:44 09/19/18 07:44 Exam: Gen: Alert, awake, Oriented x 3 HEENT: Oral thrush noted Chest: clear to auscultation Heart: S1S2+ RRR No murmurs Abd: Soft, NT, BS +, No organomegaly Back: Rt CVA tenderness + but improving - Patient Status Disposition: Home, Self-Care Condition: Good Functional capacity at discharge: independent ambulation Overall status at discharge: patient is progressing back to baseline - Discharge Instructions Instructions: Urinary Tract Infection in Women (DC), Diabetes Mellitus Type 2 in Adults (DC), Sepsis (DC) Follow Up With: Emmanuelle Lopez CNP [Primary Care Provider] - 09/24/18 7:00 pm Gera Silva MD [Partnered Physician] - - Diet and Activity Activity: resume usual activities as tolerated Diet: diabetic diet
== END 2018-09-19 11:15 | disposition home or self-care (01) | DRG 463 ==
LOC: 3BNU 18:59 → EMEROOARM 18:59 → SUATTDRO 09-16 01:09 → 3BNU 09-16 01:39 → SUATTDRO 09-16 09:25
PROVIDERS: ADMIT Internal Medicine; ATTEND Internal Medicine
PROC: IRDRAIN (2018-09-16 13:00)

== ENCOUNTER 2019-10-05 20:24 | Observation (INO) ==
[2019-10-05 21:23] LABS: Basophils % 0.3 %; Eosinophils % 0.4 %; Hematocrit 30.2 % (35.3-44.9); Hemoglobin 10.3 g/dL (11.5-15.4); Immature Granulocytes % 1.1 % (0-4); Lymphocytes # 1.2 K/mcL (0.6-4.6); Lymphocytes % 16.8 %; Mean Corpuscular HGB Conc 34.1 g/dL (31.6-35.5); Mean Platelet Volume 12.3 fL (9.4-12.4); Monocytes # 0.6 K/mcL (0.0-1.3); Monocytes % 7.7 %; Neutrophils # 5.4 K/mcL (1.6-8.9); Platelet Count 156 K/mcL (140-400); Red Blood Count 3.43 M/mcL (3.82-4.97); Red Cell Distribution Width 12.5 % (11.5-14.5); Segmented Neutrophils % 73.7 %; White Blood Count 7.3 K/mcL (4.3-11.1)
[2019-10-05 21:30] LABS: Bacteria,Urine Few per hpf (None-Few); Bilirubin,Urine Negative (Negative); Blood,Urine Negative (Negative); Clarity,Urine Clear (Clear); Color,Urine Yellow (Yellow); Glucose,Urine (UA) >=1000 mg/dL (Normal); Ketones,Urine >150 mg/dL (Negative); Leukocyte Esterase,Urine Negative (Negative); Mucus,Urine Few per lpf (None-Few); Nitrite,Urine Negative (Negative); Protein,Urine 70 mg/dL (Neg-Trace); RBC,Urine 0-3 per hpf (0-3); Specific Gravity,Urine 1.024 (1.010-1.025); Squamous Epithelial Cell,Urine Few per hpf (None-Few); Urobilinogen,Urine Normal (Normal)
[2019-10-05 22:06] LABS: Protein/Creatinine Ratio,Urine 1.23 mg/mg (0.00-0.20)
[2019-10-05] MEDS ORDERED: *HR* Labetalol 20 MG/4 ML SYRINGE IVP ONE ×2 (22:14→22:16)
[2019-10-05] MEDS ORDERED: 0.9 % Sodium Chloride 250 ML IVC ONE (22:14)
[2019-10-05] MEDS ORDERED: 0.9 % Sodium Chloride 1,000 ML ONE ×2 (22:15→22:27)
[2019-10-05] MEDS ORDERED: 0.9 % Sodium Chloride 1,000 ML IVC SCH (22:15)
[2019-10-05 22:31] LABS: Alanine Aminotransferase 5 Units/L (7-52); Albumin 2.8 g/dL (3.5-5.7); Albumin/Globulin Ratio 0.9 (1.1-2.2); Alkaline Phosphatase 97 Units/L (34-104); Aspartate Amino Transferase 11 Units/L (13-39); BUN/Creatinine Ratio 18 (6-26); Bilirubin,Total 0.4 mg/dL (0.3-1.0); Blood Urea Nitrogen 7 mg/dL (6-20); Carbon Dioxide 16 mEq/L (23-29); Chloride 103 mEq/L (98-107); Glucose 269 mg/dL (70-105); Lactate Dehydrogenase 157 Units/L (140-271); Osmolality,Calculated 283 (280-300); Potassium 3.7 mEq/L (3.5-5.1); Sodium 133 mEq/L (136-145); Total Protein 5.8 g/dL (6.4-8.9); Uric Acid 3.9 mg/dL (2.3-7.6); eGFR For African Americans > 60 (> 60); eGFR For Non-African Americans > 60 (> 60)
[2019-10-05 23:40] LABS: ABG Base Excess -9 mEq/L (-2 to 3); ABG HCO3 14 mEq/L (21-27); ABG Oxygen Saturation 98 % (95-98); ABG PCO2 23 mmHg (35-45); ABG PH 7.41 pH Units (7.32-7.45); ABG PO2 104 mmHg (85-104); ABG TCO2 15 mEq/L (20-26)
[2019-10-05] MEDS ORDERED: Insulin Human Regular 10 UNIT in 0.9 % Sodium Chloride 10 ML IV ONE (23:50)
[2019-10-06] MEDS ORDERED: *HR* Promethazine 25 MG/ML VIAL IM ONE (00:08)
[2019-10-06] MEDS ORDERED: *HR* Promethazine 25 MG/ML VIAL IVP PRN (00:21)
[2019-10-06] MEDS ORDERED: *HR* Labetalol 20 MG/4 ML SYRINGE IVP ONE ×2 (00:30)
[2019-10-06] MEDS ORDERED: Calcium Gluconate 1,000 MG/10 ML VIAL ONE (00:51)
== END 2019-10-06 00:56 | disposition short-term general hospital (02) ==
LOC: 1NENULAB → MERGE 20:24
PROVIDERS: ADMIT Obstetrics & Gynecology; ATTEND Obstetrics & Gynecology